=== PATIENT | male | born 1945 | race Caucasian/White ===

== ENCOUNTER 2019-08-01 08:02 | Outpatient (CLI) | payer MEDICARE, BC, SELFPAY ==
--- NOTE | 2019-08-01 08:18 | CT_ITS ---
WS: [id number] CT ANGIOGRAPHY OF THE ABDOMINAL AORTA WITH RUNOFF TO THE ANKLES HISTORY: PERIPHERAL VASCULAR DISEASE WITH CLAUDICATION TECHNIQUE: Arterial injection is performed during imaging to evaluate the aorta and runoff vessels to the ankles. MIP and volume rendering imaging has also been performed. All images are reviewed. All C T scans at [facility] use at least one of these dose optimization techniques: automated ex posure control; mA and/or kV adjustment per patient size (includes targeted exams where dose is match ed to clinical indication); or iterative reconstruction. Contrast: Omnipaque 350; 95 mL IV. DLP: 1369.14 mGy-cm. COMPARISON: Arterial Doppler 06/13/2019 Benign granuloma LEFT lower lobe. Heart size is normal. Small hiatal hernia. Variable enhancement wit hin the liver is probably related to early arterial enhancement. Small scattered cavernous hemangioma s are not completely excluded. No bile duct dilatation. Spleen is normal size. Gallbladder has been r emoved. Mild nodularity of the LEFT adrenal gland. Normal pancreas. 1.5 cm cyst lower pole LEFT kidne y. No renal obstruction. No ascites or adenopathy. RIGHT lower quadrant ileostomy. Prior cystectomy. Soft tissue thickening along the anterior LEFT abdominal wall soft tissues. No GI tract obstruction. Increase in lumbar lordosis. No osseous destruction appreciated. Abdominal aorta: Mild to moderate atherosclerosis. No occlusion or aneurysm. Celiac axis and the SMA are patent. Renal arteries and the inferior mesenteric artery are all patent. RIGHT lower extremity arterial system: Moderate calcified plaque throughout the RIGHT common and exte rnal iliac arteries. RIGHT femoral artery is occluded proximally. The deep profundas intact. Of the S FA there is complete occlusion with reconstitution noted approaching Surinder's canal. There is still c alcified plaque in the distal SFA and popliteal artery. Scattered calcified plaque throughout the run off to the ankle. Anterior tibial artery is occluded. Small caliber peroneal and posterior tibial art eries. LEFT lower extremity venous system: Moderate atherosclerotic plaque throughout the common iliac arter y. Stenosis of 40-50% involving the origin of the LEFT external iliac artery. Complete occlusion of t he proximal femoral artery. Deep profunda is intact. Superficial femoral arteries completely occluded to Surinder's canal. At Surinder's canal there is reconstitution. Scattered calcified plaque at the popl iteal artery is patent. Small vessel runoff to the ankle. Anterior tibial and posterior tibial arteri es are very small caliber. CT/CT angio abd aorta runof [id number] IMPRESSION: 1. Complete bilateral proximal superficial femoral artery occlusions at the or igins. Reconstitution near Surinder's canal. 2. Occluded proximal RIGHT anterior tibial artery. 3. Small caliber and limited runoff to the LEFT ankle via the anterior tibial and posterior tibial arteries. 4. Mild atherosclerosis aorta with no aneurysm or significant occlusion. 5. Mild stenosis origin LEFT external iliac artery. 6. Cystectomy with urinary diversion.
[2019-08-01] MEDS: iohexol 350 mg/mL 100 mL Btl IV (08:49)
== END 2019-08-01 08:03 | disposition home or self-care (01) ==
LOC: RADWPI 08:09
PROVIDERS: Family Provider Nurse Practitioner Family; PCP Nurse Practitioner Family; Referring Provider Nurse Practitioner Family; Visit Provider Thoracic Surgery (Cardiothoracic Vascular Surgery)
DX: I70.92 Chronic total occlusion of artery of the extremities (principal); I70.213 Atherosclerosis of native arteries of extremities with intermittent claudication, bilateral legs; I70.0 Atherosclerosis of aorta; I70.8 Atherosclerosis of other arteries; Z90.6 Acquired absence of other parts of urinary tract
CPT/HCPCS: 75635; Q9967

== ENCOUNTER 2019-08-29 13:02 | Observation (INO) | payer MEDICARE, BC, SELFPAY ==
[2019-08-29] VITALS (34 sets, daily range): BP systolic 104–180; BP diastolic 68–98; PULSE 51–67; RESP 1–23; TEMP 36.4–37; O2SAT 80–100; BMI 26.4
--- NOTE | 2019-08-29 09:00 | XACV_ITS ---
Wt: 83 kg BSA: 2.04 m2 Any Known Allergies: Penicillins Gender: Male : 1945 Exam Type: Invasive Peripheral Vascular Procedure(s): Procedure Description: Peripheral Cath Diagnostic Procedure Procedure Description: Abdominal aortic angiography Procedure Description: Lower extremities' angiography Procedure Description: Peripheral vascular Intervention Procedure Description: PV Balloon Procedure Description: PV Atherectomy Exam Priority: Routine Lower Extremity Interventional Findings Right common femoral artery was used to approach left ostial SFA which was chronically occluded. After somewhat difficulty we were able to cross the lesion with the help of Glidewire , viper wire was exchanged , CSI atherectomy of ostial to distal left SFA using 2.0 bur followed by balloon angioplasty with [id number] and lutonix drug-eluting balloons, Good angiographic result with excellent flow was achieved in the left SFA, popliteal, tibioperoneal trunk and below the knee two -vessel runoff including anterior posterior tibial was achieved. Please see the inventory for details left balloons wires and other instruments. Conclusions Peripheral Procedure Description: severe lifestyle limiting claudication of both legs more on the left leg .Negro grade II, category 4:Dami stage III. Procedure#1 Abdominal aorta : Luminal irregularities with moderate aneurysm#2 Left and right renal artery has luminal irregularities#3 Left common iliac artery has luminal irregularity #4 Right common iliac artery has luminal irregularity #5 Left internal iliac and right internal iliac has luminal irregularities#7 Right and left external iliac artery has luminal irregularity#8 Left and right common femoral artery has luminal irregularity#9 Left and right profunda femoral artery has luminal irregularity#10 Right and left SFA are chronically occluded at the ostium. No flow noted below the knee however it appeared to me that it tried to constitute on the left side at the level of mid popliteal artery. No tibial peroneal trunk anterior posterior and peroneal arteries on both sides were visualized. Recommendations 1-Return to inpatient for close monitoring and routine cath care2-Risk factor modification for secondary prevention3-Statin and aspirin 81 mg life-long, if tolerated4-Continue Plavix 75mg p.o. daily for three months. Patient will be brought back for right SFA intervention for life style limiting claudication in tthree weeks5-Continue optimal medical management6-Follow up with Dr. Augustin in four weeks and your primary care in 10 days. Hemodynamic Data Phase:Rest AO : 134.0 mmHg / 53.0 mmHg ( 82.0 mmHg ) @ 5:29:00 AM 103.0 mmHg / 43.0 mmHg ( 65.0 mmHg ) @ 5:52:00 AM Access Site Site: Right Femoral artery Sheath Size: 6 Fr Hemost... Method: Suture Hemost... Success: Successful Procedure Details Findings Procedure Consent Obtained. Pre-Procedure Time Out. Identified patient by full name and date of as verbalized by the patient/guarantor. Does the consent match the physician's order: Yes. Accurate & Complete Informed Consent: Yes. Inpatient/Outpatient History & Physical on Chart: Yes. If H&P is completed, is and addenduem needed: No; If yes, is the addendum complete: N/A. Visualize and Verify Site with Patient/Guarantor: N/A. Relevant Radiology Images available: N/A. Pre-op teaching completed and patient verbalized understanding. The risks, benefits, and alternatives of sedation and/or procedure were discussed by physician. The patient agrees to continue. Procedure started. Correct patient, site and procedure confirmed by cath team. PERRLA. Strong, equal hand care center manager bilaterally. Lungs clear x 5 lobes. IV Site on Arrival: 20 gauge in the left anticubital. IV Fluids: 0.9% NaCl at KVO. 0 mL infused prior to cook house laborer. Physician notified. Pre Procedural Pulses: bilateral dorsalis pedis was Doppled. Pre Procedural Pulses: bilateral posterior tibial was Doppled. Oxygen started at 2liters/min via nasal canula. bilateral groins was prepped with chloroprep then draped in the usual sterile fashion. Pt arrived with dominguez catheter via urostomy in place. Baseline sample Acquired. HR: 43 BPM. Equipment: Peripheral. Physician arrived. Cardiac Cath Pack. ACIST Manifold Kit Model BT 2000. Heparinized Saline (2 units/mL), 1000 mL bag. Physician scrubbed in. Immediate Pre-Procedure Time Out. Correct Patient: Yes; Correct Procedure: Yes; Correct Site: Yes; Correct Patient Position: Yes; Correct Supplies: Yes; Dried Flammable Prep: Yes; Blood Products Available: N/A;. Lidocaine 1% infiltrated to the right groin. Arterial access obtained with micropuncture set. 5 Fr Contra catheter inserted over wire. Abdominal aortogram performed in AP @ 10 mL/sec for a total of 30 mL. Glidewire inserted. Catheter removed over the glide wire. Short 6 fr sheath exchanged for long 45 cm 6 fr flexor sheath. Inventory is CK 6 FR FLEXOR SHEATH 45CM. Side port of sheath attached to Normal Saline flush at KVO to maintain patency. Left leg runoff through sheath 10 ml for total of 30 ml. SEEKER support catheter inserted over glidewire. Wire out. Hand injection. Glidewire out. VIPER wire inserted. SEEKER catheter out over VIPER wire. Family updated. 2.00 mm Diamondback 360 Peripheral Atherectomy device inserted over VIPER wire. Orbital Atherectomy performed to Left SFA with 2.00mm device. Atherectomy device removed over VIPER wire. Results checked. SEEKER catheter inserted over VIPER wire. VIPER wire out. SEEKER catheter out. Inflation number : 1 A AB Surrency 35 FURNITURE ASSEMBLER Catheter [id number] was prepped and advanced across the Superficial Femoral, Left , then inflated to 6 GEOVANNI for 1:04 seconds. Inflation number: 2 The AB Surrency 35 FURNITURE ASSEMBLER Catheter [id number] was reinflated across the Superficial Femoral, Left, to 6 GEOVANNI for 1:03 seconds. Inflation number: 3 The AB Surrency 35 FURNITURE ASSEMBLER Catheter [id number] was reinflated across the Superficial Femoral, Left, to 6 GEOVANNI for 1:03 seconds. Inflation number: 4 The AB Surrency 35 FURNITURE ASSEMBLER Catheter [id number] was reinflated across the Superficial Femoral, Left, to 6 GEOVANNI for 1:04 seconds. Balloon out over wire. Inflation number: 5 The AB Surrency 35 FURNITURE ASSEMBLER Catheter [id number] was reinflated across the Superficial Femoral, Left, to 8 GEOVANNI for 2:04 seconds. Inflation number: 6 The AB Surrency 35 FURNITURE ASSEMBLER Catheter [id number] was reinflated across the Superficial Femoral, Left, to 8 GEOVANNI for 1:05 seconds. Inflation number: 7 The AB Surrency 35 FURNITURE ASSEMBLER Catheter [id number] was reinflated across the Superficial Femoral, Left, to 8 GEOVANNI for 1:03 seconds. Inflation number : 8 A BARD 6FR Lutinox [id number] drug coated balloon was prepped and advanced across the Superficial Femoral, Left , then inflated to 8 GEOVANNI for 1:03 seconds. Inflation number: 9 The BARD 6FR Lutinox [id number] drug coated balloon was reinflated across the Superficial Femoral, Left, to 8 GEOVANNI for 1:03 seconds. Inflation number: 11 The BARD 6FR Lutinox [id number] drug coated balloon was reinflated across the Superficial Femoral, Left, to 8 GEOVANNI for 1:01 seconds. Balloon out. Long 45 cm 6 fr flexor exchanged for short 6 fr sheath. Right leg runoff 10 ml for total of 30 ml through sheath. Physician scrubbed out. A Suture was successful obtaining hemostatsis at the Right Femoral artery insertion site. Sheath(s) sutured into position with 2-0 silk and sterile 4x4's and Op-site applied over the site. No oozing or signs and symptoms of hematoma noted. Arterial sheath flushed and connected to tranducer and pressure bag with heparinized saline. Post Procedure: Pulses reassessed and unchanged. PERRLA. Strong, equal hand care center manager bilaterally. No VTE prophylaxis required. Medication's Wasted: Nitro = 49.2 mg. Medication's Wasted: Heparin = 1000 units. Total IV fluids: 200 mL. Contrast type used: Visipaque 320 mgI/mL, 500 mL bottle. Complications: none. Medication's Wasted: Other = fentanyl 50 mcg. Post-op diagnosis: severe PAD with lifestyle limiting claudication. Estimated blood loss: 5mL-10mL. Procedure completed. Patient transferred by bed to 1st floor. Vital chart was stopped. Procedure Medications Start: 11:20 AM Stop: 11:20 AM Medication: Versed Amount: 1 mg Route: I.V. Start: 11:21 AM Stop: 11:21 AM Medication: Fentanyl Amount: 50 mcg Route: I.V. Start: 11:39 AM Stop: 11:39 AM Medication: Versed Amount: 1 mg Route: I.V. Start: 11:39 AM Stop: 11:39 AM Medication: Fentanyl Amount: 50 mcg Route: I.V. Start: 11:55 AM Stop: 11:55 AM Medication: Heparin Amount: 5000 units Route: I.V. Start: 12:20 PM Stop: 12:20 PM Medication: Nitrogylcerin Amount: 400 mcg Route: I.A. Start: 12:41 PM Stop: 12:41 PM Medication: Nitrogylcerin Amount: 400 mcg Route: I.A. Start: 12:52 PM Stop: 12:52 PM Medication: Fentanyl Amount: 50 mcg Route: I.V. I, the attending physician, have reviewed and verified all procedure medications. Yes, all medications given per verbal order History/Risk Factors Hypertension: Yes Dyslipidemia: Yes Diabetic Therapy: Insulin Peripheral Arterial Disease (PAD): Yes Myocardial Infarction (AR): No Obesity: No Renal Disease: No Tobacco Use: Current/Recent(w/in 1 year) Prior Interventions PCI: No CABG: No Valve Surgery: No Report Signatures Finalized by:Parisa Augustin MD on 09/11/2019 6:37:42 PM
[2019-08-29] MEDS: diphenhydrAMINE 50 mg Capsule PO (10:22)
[2019-08-29 10:37] LABS: Basophils # 0.1 10^3/uL (0.0-0.1); Basophils % 0.7 %; Eosinophils # 0.1 10^3/uL (0.0-0.8); Eosinophils % 1.2 %; Hemoglobin 15.9 g/dL (11.7-16.6); Lymphocytes # 2.6 10^3/uL (0.8-4.8); Lymphocytes % 28.5 %; Mean Corpuscular HGB Conc 33.8 g/dL (30.0-36.0); Mean Corpuscular Hemoglobin 31.1 pg (28.0-34.0); Mean Corpuscular Volume 91.8 fL (80-94); Monocytes # 0.8 10^3/uL (0.2-0.9); Monocytes % 9.2 %; Neutrophils # 5.5 10^3/uL (1.8-7.7); Neutrophils % 60.1 %; Nucleated Red Blood Cells % 0 %; Platelet Count 232 10^3/cmm (130-400); Red Blood Count 5.12 10^6/uL (4.1-5.3); Red Cell Distribution Width 13.5 % (12.1-15.1); White Blood Count 9.1 10^3/uL (4.0-10.0)
[2019-08-29 10:54] LABS: Anion Gap 15.5 (5-19); Blood Urea Nitrogen 16 mg/dL (8-23); Calcium 9.6 mg/dL (8.5-10.5); Carbon Dioxide 23 mmol/L (22-29); Chloride 106 mmol/L (98-107); Glucose 111 mg/dL (65-115); Osmolality Calculated 287 mOsm/kg (285-295); Potassium 4.5 mmol/L (3.5-5.1); Sodium 140 mmol/L (136-145)
[2019-08-29] MEDS: clopidogrel 300 mg Tablet PO (14:41)
[2019-08-29] MEDS: amlodipine 5 mg Tablet PO (15:28)
[2019-08-29] MEDS: atorvastatin 40 mg Tablet 20 MG PO (15:29)
[2019-08-29 16:44] LABS: Glucose Point of Care 162 mg/dL (70-110)
[2019-08-29 16:57] LABS: Partial Thromboplastin Time 33.6 SECONDS (23.9-36.7)
[2019-08-29] MEDS: HYDROcodone-acetaminophen 5-325 mg Tablet 1 TAB PO (17:12)
[2019-08-29] MEDS: gabapentin 100 mg Capsule 200 MG PO (17:12)
[2019-08-29] MEDS: fentaNYL 50 mcg/mL INJ 2mL IVP (17:14)
--- NOTE | 2019-08-29 17:35 | PC.NURSE ---
Sheath removed Explained procedure to pt. Fentanyl IVP given pre-sheath pull. Atropine at bedside as needed. Right groin femoral artery felt and palpated. Sheath removed and applied manual pressure for 20 mins. No hematoma, bleeding or swelling noted. Neurovascualr checks monitored. Slightly faint but able to palpate right dorsalis pedis. Skin is mildly cooler on right foot. pt denies any pain to right lower extremity. Instructed pt on activity bed rest for 6 hrs. HOB not more than 30 degrees elevation. to call nurse if any wetness, unusual pain or pressure felt. Pt verbalizes understanding. Call light within reach. Vital signs monitored.
--- NOTE | 2019-08-29 17:51 | PC.CHAP ---
Pastoral Care Encounter/Spiritual Assessment Type of Contact [] Declined deckhand fishing vessel visit [] Patient/Family/Request visit [] Outpatient visit [] Follow-up visit [] Physician referral [] Code/Alert [x] Routine visit [] Staff referral [] Actively dying [] Patient sleeping [] Family support [] [] Out of room [] Palliative care [] [] Receiving care in room [] Pre-surgical visit [] Trauma [] Long length of stay [] ICU visit [] Other: Relational/Emotional Strength [x] Patient feels connected with others/family/visitors/staff [] Distress [] Loneliness/isolation [] Abandonment Spirituality of Patient [] Person of Jenna [] Attends Anglican of their Jenna [x] Believes in Prayer [] Reads Bible or Yazdanism materials [] There are Spiritual issues to be addressed Audioprosthologist Interventions [x] Prayer [x] Active listening [x] Non-anxious presence [x] Spiritual/emotional support [] Crisis/trauma care [] Spiritual counseling [] Bereavement support [] Provided bereavement packet [] Provided Bible/devotional materials [] Provided toy/stuffed animal, coloring book to patient or family member [] Provided Communion [] Anointing/[place] [] Salvation [x] Completed spiritual assessment [] Other: Impact on Illness or Injury [] Angry [] Fearful [] Anxious [] Often cries [] Exhaustion [] Unable to work [] Unable to attend lutheran [] Unable to walk/stand [] Unable to read [] Unable to drive [] Unable to eat/drink [] Unable to sleep [] Unable to be with family [] Patient intubated [] Other: Summary Audioprosthologist prayed with patient and visited with him for a few minutes. Time spent with patient 10 minutes
--- NOTE | 2019-08-29 20:31 | PC.NURSE ---
Assumed care of patient at 1900 after receiving bedside report from ALEXANDREA Graves. Patient is s/p peripheral angiogram with right groin access. Sheath was removed and dressing is in place. Dressing is c,d,i.
[2019-08-29 20:43] LABS: Glucose Point of Care 175 mg/dL (70-110)
[2019-08-29] MEDS: insulin glargine 100 units/1 mL 30 UNIT SUBCUT (21:21)
[2019-08-29] MEDS: sodium chloride 0.9% 1,000 ML 100 ML IV (21:21)
[2019-08-30 03:57] VITALS: BP 131/67; PULSE 58; RESP 16; TEMP 36.8; O2SAT 91
[2019-08-30 05:11] LABS: Basophils # 0.1 10^3/uL (0.0-0.1); Basophils % 0.7 %; Eosinophils # 0.3 10^3/uL (0.0-0.8); Eosinophils % 2.6 %; Hematocrit 45.9 % (42.0-52.0); Hemoglobin 14.8 g/dL (11.7-16.6); Lymphocytes # 2.3 10^3/uL (0.8-4.8); Lymphocytes % 20.4 %; Mean Corpuscular HGB Conc 32.2 g/dL (30.0-36.0); Mean Corpuscular Hemoglobin 31.8 pg (28.0-34.0); Mean Corpuscular Volume 98.7 fL (80-94); Mean Platelet Volume 10.3 fL (7.4-10.4); Monocytes # 1.2 10^3/uL (0.2-0.9); Monocytes % 10.4 %; Neutrophils # 7.4 10^3/uL (1.8-7.7); Neutrophils % 65.6 %; Nucleated Red Blood Cells % 0 %; Platelet Count 206 10^3/cmm (130-400); Red Blood Count 4.65 10^6/uL (4.1-5.3); Red Cell Distribution Width 13.8 % (12.1-15.1); White Blood Count 11.2 10^3/uL (4.0-10.0)
[2019-08-30] MEDS: insulin glargine 100 units/1 mL 40 UNIT SUBCUT (05:11)
[2019-08-30 05:40] LABS: Anion Gap 15.9 (5-19); Blood Urea Nitrogen 17 mg/dL (8-23); Calcium 8.9 mg/dL (8.5-10.5); Carbon Dioxide 21 mmol/L (22-29); Chloride 105 mmol/L (98-107); Glucose 182 mg/dL (65-115); Osmolality Calculated 285 mOsm/kg (285-295); Potassium 4.9 mmol/L (3.5-5.1); Sodium 137 mmol/L (136-145)
[2019-08-30 06:12] LABS: Glucose Point of Care 157 mg/dL (70-110)
[2019-08-30 07:29] VITALS: BP 143/74; PULSE 67; RESP 13; TEMP 36.8; O2SAT 96
[2019-08-30] MEDS: aspirin 81 mg EC Tablet PO (08:17)
[2019-08-30] MEDS: gabapentin 100 mg Capsule 200 MG PO (08:17)
[2019-08-30] MEDS: atorvastatin 40 mg Tablet 20 MG PO (08:18)
[2019-08-30] MEDS: amlodipine 5 mg Tablet PO (08:18)
[2019-08-30 11:04] VITALS: BP 143/74; PULSE 67; RESP 13; TEMP 36.8; O2SAT 96
[2019-08-30 11:32] LABS: Glucose Point of Care 190 mg/dL (70-110)
--- NOTE | 2019-09-20 14:48 | P.SS_ITS ---
Short Stay Summary Providers Attending Provider: Parisa Augustin MD Primary Care Provider: JOSE Paez Chief Complaint: lifestyle limmiting clauditation HPI History of Present Illness Bandar Vee is a 74 year old male Past medical history significant of diabetes mellitus history of tobacco abuse who underwent Peripheral angiogram for lifestyle limiting Claudication found to have totally occluded bilateral SFA. Right common femoral artery approach was adopted. After somewhat difficulty we were able to cross ostial SFA lesion. CSI orbital atherectomy with 2.0 by was performed followed by multiple balloon angioplasty with non-drug coated and lutonix drug-coated balloon with excellent angiographic result. Excellent angiographic result was achieved in the left SFA, popliteal, tibioperoneal trunk with 2 good Multivessel runoff noted in the lower leg and in the foot. No overnight event was observed Postoperatively. Patient has good left leg dorsalis pedis and posterior tibial pulse. Right groin looks better. Patient is being discharged home with advice to bring him back in 2-3 weeks for right leg intervention for right complete SFA occlusion. Review of Systems Skin/Breast: Reports: surgical incision Home Meds/Allergies Home Medications and Allergies Home Medications Medication Instructions Recorded Confirmed Type amlodipine 5 mg-atorvastatin 20 mg 1 tab PO DAILY 07/18/19 09/06/19 History tablet gabapentin 100 mg capsule 200 mg PO BID 07/18/19 09/06/19 History pravastatin 40 mg tablet 40 mg PO DAILY 07/18/19 09/06/19 History aspirin 81 mg tablet,delayed 81 mg PO DAILY 07/21/19 09/06/19 History release insulin aspart U-100 [Novolog 0 unit SUBCUT AC 08/26/19 09/06/19 History U-100 Insulin aspart] insulin glargine 30 unit SUBCUT BEDTIME 08/26/19 09/06/19 History insulin glargine 40 unit SUBCUT QAM 08/26/19 09/06/19 History Allergies Allergy/AdvReac Type Severity Reaction Status Date / Time Penicillins Allergy Unknown unknown Verified 07/18/19 14:41 PFSH Acute PFSH: Medical History Bladder CA in situ Fracture of right tibia and fibula Hyperlipidemia Hypertension Surgical History H/O eye surgery H/O right cataract extraction H/O thumb surgery Family History Father CAD (coronary artery disease) Diabetes Family history of premature coronary artery disease Mother Cancer Denies family history of Clotting disorder Dementia Psychiatric illness Chronic kidney disease (CKD) Suicide Anesthesia complication Bleeding disorder Lung disease Hypertension Stroke Social History Smoking and tobacco status: current every day smoker cigars Cigars smoked per week: 5 Alcohol intake: never Dietary Habits: Current diet type/program: regular Caffeine: Yes Exercise: What type of physical activity do you participate in?: none Safety: Seatbelt use: always Home Safety: Working smoke detector in home: Yes Fire extinguisher in home: No Carbon monoxide detector in home: No Firearms in home: No Personal Safety: Do you feel safe at home: No Vitals/I&O/Wt Last Vital Signs Temp 98.2 F 08/30/19 11:04 Pulse 67 08/30/19 11:04 Resp 13 08/30/19 11:04 BP 143/74 08/30/19 11:04 Pulse Ox 96 08/30/19 11:04 Physical Exam Narrative: EXAM NARRATIVE: GENERAL: Patient is alert, awake and oriented x3. NECK: No jugular vein distension. HEENT: No cyanosis. No icterus. No pallor. HEART: Regular S1 and S2. No murmur, rub or gallop. LUNGS: Clear to auscultate bilaterally. ABDOMEN: Soft, nontender and nondistended. Positive bowel sounds. No guarding, rebound or tenderness. CENTRAL NERVOUS SYSTEM: Grossly nonfocal. EXTREMITIES: Lower extremities without edema Left dorsalis pedis and posterior tibial positive. No dorsalis pedis and posterior tibial in the right leg SSS Data Data Completed and Pending: Completed Studies During Hospitalization Category Date Time Status SOCCER BALL ASSEMBLER request for service Routin e Exams 08/29/19 09:00 Completed Discharge Plan Discharge Patient Disposition: Home, Self-Care Prescriptions: New clopidogrel 75 mg tablet 75 mg PO DAILY Qty: 90 RF: 0 Continued aspirin [Adult Aspirin Regimen] 81 mg tablet,delayed release (DR/EC) 81 mg PO DAILY RF: 0 amlodipine-atorvastatin 5-20 mg tablet 1 tab PO DAILY RF: 0 pravastatin 40 mg tablet 40 mg PO DAILY RF: 0 gabapentin 100 mg capsule 200 mg PO BID RF: 0 insulin glargine 100 unit/mL Solution 30 unit SUBCUT BEDTIME RF: 0 insulin glargine 100 unit/mL Solution 40 unit SUBCUT QAM RF: 0 insulin aspart U-100 [Novolog U-100 Insulin aspart] 100 unit/mL Solution 0 unit SUBCUT AC RF: 0 Discharge Orders: Discharge Order (Routine); Ordered 08/30/19 Ordered By: Parisa Augustin Referrals: Parisa Augustin MD [Physician] - 2 months (You have a cardiology followup with Dr. Augustin at [facility] [place] [facility] on November 15 at 3:45pm. Any questions or appointment changes, please call them at [phone]) Halley Choudhury FNP [Nurse Practitioner] - 4-7 days (You have an appointment scheduled with JOSE Cleaning at [facility] for surgery site check on September 06 at 2:00pm. Any questions or appointment changes, please call them at [phone]) Patient Instructions: Clopidogrel (By mouth), Peripheral Vascular Disorders (DC) Discharge Date/Time: 08/30/19 11:35 Attestations Medical Necessity Statement*: Patient can be discharged home Time Spent in Patient Care*: less than 30 min Quality Metrics Clinical Quality Measures: During this hospital stay, did patient experience: None Coding Level of Care Code New Pt Acute Project Management Engineer for Chg Fwd Patient Type New History Expanded Problem Focused Exam Expanded Problem Focused Medical Decision Making Moderate Complexity
== END 2019-08-30 11:35 | disposition home or self-care (01) ==
LOC: CSU 14:20
PROVIDERS: Admitting Provider Internal Medicine Cardiovascular Disease; Family Provider Nurse Practitioner Family; PCP Nurse Practitioner Family; Visit Provider Internal Medicine Cardiovascular Disease
DX: I70.213 Atherosclerosis of native arteries of extremities with intermittent claudication, bilateral legs (principal); Z79.82 Long term (current) use of aspirin; E78.5 Hyperlipidemia, unspecified; I10 Essential (primary) hypertension
CPT/HCPCS: 12345; 36415; 36416; 37224; 37225; 75625; 75716; 80048; 82962; 85025; 85730; 96372; C1724; C1725; C1769; C1887; C1894; C2623; G0378; J1644; J1815; J2001; J2250; J3010; J3490; J7030; Q0163; Q9967

== ENCOUNTER → 2019-09-06 14:50 | Outpatient (BNVA) | payer MEDICARE, BC, SELFPAY | PROVIDERS: Family Provider Nurse Practitioner Family; PCP Nurse Practitioner Family; Visit Provider Nurse Practitioner Family | DX: I73.9 Peripheral vascular disease, unspecified (principal) | CPT/HCPCS: 80048 ==

== ENCOUNTER → 2019-10-06 10:36 | Outpatient (BNVA) | payer MEDICARE, BC, SELFPAY | PROVIDERS: Family Provider Nurse Practitioner Family; PCP Nurse Practitioner Family; Visit Provider Nurse Practitioner Family | DX: E78.2 Mixed hyperlipidemia (principal); Z51.81 Encounter for therapeutic drug level monitoring; I10 Essential (primary) hypertension; E78.5 Hyperlipidemia, unspecified; I73.9 Peripheral vascular disease, unspecified; E10.51 Type 1 diabetes mellitus with diabetic peripheral angiopathy without gangrene | CPT/HCPCS: 80053; 80061; 83036; 85025 ==

== ENCOUNTER → 2020-04-16 11:48 | Outpatient (BNVA) | payer MEDICARE, BC, SELFPAY | PROVIDERS: Family Provider Nurse Practitioner Family; PCP Nurse Practitioner Family; Visit Provider Nurse Practitioner Family | DX: E11.9 Type 2 diabetes mellitus without complications (principal); Z79.899 Other long term (current) drug therapy; E78.5 Hyperlipidemia, unspecified; I10 Essential (primary) hypertension | CPT/HCPCS: 80048; 83036 ==

== ENCOUNTER 2020-05-09 09:44 | Outpatient (CLI) | payer MEDICARE, BC, SELFPAY ==
[2020-05-09 10:04] VITALS: BMI 25.4
--- NOTE | 2020-05-09 10:12 | ECG_ITS ---
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 Interpretive Statements NAME OF STUDY: EXERCISE SESTAMIBI STRESS TEST INDICATION: Chest Pain; Shortness of BreathResults to DR AUGUSTIN PROCEDURE: The baseline electrocardiogram showed normal sinus rhythm with normal ST-Ts. At the baseline, the patient's blood pressure was 157/74 mm Hg with a heart rate of 37. The patient exercised for 7 minutes and 46 seconds on a standard Senthil protocol. Patient attained a maximum heart rate of 132 beats per minute(89% of the maximum predicted heart rate) with a blood pressure at the peak exercise of 219/85 the inferolateral leads. Patient did not have any chest pain or any significant arrhythmis with the exercise Sestamibi was injected 1 minute prior to the peak exercise During the recovery phase, there were no new changes. Patient had few PVCs, couplets and an episode of nonsustained medical tachycardia during the recovery phase Blood pressure at the end of the recovery phase was 157/70 mm Hg with a heartNormal 1. Nonspecific EKG changes with the [treadmill exercise 2. No exercise-induced chest pain or cardiac arrhythmia. Hypertensive response to exercise 3. Fair exercise tolerance, attained a maximum of 10.2 METs 4. Sestamibi/Sestamibi perfusion results pending; see separate report. Electronically Signed On 05-10-2020 8:44:22 CDT by Dmitriy Lala M.D. [id number]
--- NOTE | 2020-05-09 10:13 | NMCV_ITS ---
NM keiar perf SPECT r/s* [id number] Bandar Vee Age: 75 Gender: M : 1945 Exam Date: 05/09/2020 10:50 Ordering Phys: Parisa Augustin MD ([email or web address]) Technologist: JOSÉ MIGUEL Hernandez Exam Location: [facility] Indications: CHEST PAIN STRESS TEST Please [facility] IMAGE PROTOCOL Rest/Stress 1 Exercise Day Radiopharmaceutical Dose (mCi) Administration Site Administered by Rest: Tc-99m 10.7 IV JOSÉ MIGUEL Perez Sestamibi Stress:Tc-99m 32.9 IV JOSÉ MIGUEL Perez Sestamibi Rest: 09-May-2020 60 Discovery 630 Stress: 09-May-2020 30 Discovery 630 Radiopharmaceutical was injected at 85 % maximum heart rate. Images obtained in supine and prone position. SPECT RESULTS Technical Quality: Excellent Raw Data Analysis: Normal Image Corrections: No attenuation or motion correction applied to stress images. Summed Stress Score: 11 Summed Rest Score: 10 Summed Difference Score: 1 PERFUSION FINDINGS Moderate area of severely decreases uptake was noted in the basal and mid inferior, inferolateral knee and apical lateral regions. Small area of decreased tracer uptake was noted in the mid anteroseptal region as well. Subtle areas of reversibility was noted in the inferior and inferolateral regions. FUNCTIONAL RESULTS (calculated via Gated SPECT) Stress Image LV EF (%): 57 Stress EDV (mL):92 TID: 0.94 Stress ESV (mL):40 FUNCTIONAL FINDINGS: Segmental wall motion analysis revealing no gross wall motion normalities. IMPRESSIONS 1. Myocardial perfusion imaging revealing moderate area of severely decreases uptake in the inferior, inferolateral and apical lateral regions, with a subtle areas of reversibility in the inferior and inferolateral regions, suggestive of myocardial scarring in the distribution of the right coronary artery and circumflex artery with very small areas of bright-infarction ischemia. 2. Normal elution fraction 57%. 3. LV wall motion analysis revealing no gross wall motion abnormalities. 4. Normal LV volume.( the end-systolic volume was [address] mL). Dr Dmitriy Lala MD FACC (Electronically Signed) Final Date: 09 May 2020 21:05 S
--- NOTE | 2020-05-09 12:15 | SUR.PREOP ---
Patient reports no pain or discomfort prior to the start of the procedure.
[2020-05-09 12:44] VITALS: BP 154/80; PULSE 83
== END 2020-05-09 09:45 | disposition home or self-care (01) ==
PROVIDERS: PCP Nurse Practitioner Family; Visit Provider Internal Medicine Cardiovascular Disease
DX: R07.9 Chest pain, unspecified (principal); R06.02 Shortness of breath
CPT/HCPCS: 78452; 93017; A9500

== ENCOUNTER 2020-07-05 15:02 | Outpatient (CLI) | payer MEDICARE, BC, SELFPAY | END 2020-07-05 15:03 | disposition home or self-care (01) | LOC: WOUND 15:05 | PROVIDERS: PCP Nurse Practitioner Family; Visit Provider Thoracic Surgery (Cardiothoracic Vascular Surgery) | DX: E11.621 Type 2 diabetes mellitus with foot ulcer (principal); L97.422 Non-pressure chronic ulcer of left heel and midfoot with fat layer exposed; L97.523 Non-pressure chronic ulcer of other part of left foot with necrosis of muscle; Z89.422 Acquired absence of other left toe(s) | CPT/HCPCS: 11042 ==

== ENCOUNTER → 2020-08-22 09:28 | Outpatient (BNVA) | payer MEDICARE, BC, SELFPAY | PROVIDERS: PCP Nurse Practitioner Family; Visit Provider Nurse Practitioner Family | DX: E11.9 Type 2 diabetes mellitus without complications (principal); R25.2 Cramp and spasm; Z51.81 Encounter for therapeutic drug level monitoring; Z79.899 Other long term (current) drug therapy; I10 Essential (primary) hypertension; E78.5 Hyperlipidemia, unspecified; Z79.01 Long term (current) use of anticoagulants | CPT/HCPCS: 80053; 82043; 82550; 83036; 83735; 85025 ==

== ENCOUNTER → 2020-11-07 08:57 | Outpatient (BNVA) | payer MEDICARE, BC, SELFPAY | PROVIDERS: PCP Nurse Practitioner Family; Visit Provider Internal Medicine Cardiovascular Disease | DX: I73.9 Peripheral vascular disease, unspecified (principal); Z01.812 Encounter for preprocedural laboratory examination; Z11.52 Encounter for screening for COVID-19 | CPT/HCPCS: 80048; 85025; 85610; 87635 ==

== ENCOUNTER 2020-11-12 09:28 | Observation (INO) | payer MEDICARE, BC, SELFPAY ==
[2020-11-09 09:00] VITALS: BMI 26.5
[2020-11-12] VITALS (35 sets, daily range): BP systolic 112–183; BP diastolic 63–88; PULSE 48–76; RESP 12–25; TEMP 36.3; O2SAT 96–98; BMI 26.8
--- NOTE | 2020-11-12 07:30 | XACV_ITS ---
Ht: 178 cm Wt: 85 kg BSA: 2.06 m2 Any Known Allergies: Penicillins Gender: Male : 1945 Exam Type: Invasive Peripheral Vascular Procedure(s): Procedure Description: Peripheral Cath Diagnostic Procedure Procedure Description: Lower extremities' angiography Exam Priority: Routine Lower Extremity Interventional Findings Through left common femoral approach using Glidewire with the help of seeker was used to cross the proximal right SFA. We were able to cross the proximal SFA into the distal segment however due to very highly calcified nature of the lesion we were not able to cross in to popliteal vessel. Procedure remained unsuccessful as at this point we will bring him back for popliteal approach in few days. Conclusions Indication for peripheral angiogram: Lifestyle limiting claudicationSelective engagement of right common iliac artery was performed through left common femoral approach.Right common iliac artery has luminal irregularity, right external iliac, common femoral and profundofemoral has luminal irregularity.Right SFA is chronically occluded at the ostium all the way to the distal segment popliteal artery reconstitutes through profunda at the distal segment of the chronically occluded right SFA. Right tibioperoneal trunk has luminal irregularity right anterior tibial artery is chronically occluded two-vessel runoff was noted below the knee. Recommendations Usual post-cath care, stage percutaneous intervention through popliteal approach in couple of weeks. Hemodynamic Data Phase:Rest AO : 125.0 / 56.0 ( 80.0 ) @ 8:37:00 AM Access Site Site: Left Femoral artery Sheath Size: 6 Fr Hemost... Method: Suture Hemost... Success: Successful Procedure Details Findings Procedure Consent Obtained. Pre-Procedure Time Out. Identified patient by full name and date of as verbalized by the patient/guarantor. Does the consent match the physician's order: Yes. Accurate & Complete Informed Consent: Yes. Inpatient/Outpatient History & Physical on Chart: Yes. If H&P is completed, is and addenduem needed: No; If yes, is the addendum complete: N/A. Visualize and Verify Site with Patient/Guarantor: N/A. Relevant Radiology Images available: N/A. Pre-op teaching completed and patient verbalized understanding. The risks, benefits, and alternatives of sedation and/or procedure were discussed by physician. The patient agrees to continue. Procedure started. Correct patient, site and procedure confirmed by cath team. PERRLA. Strong, equal hand manager payroll bilaterally. Lungs clear x 5 lobes. IV Site on Arrival: 20 gauge in the left anticubital. IV Fluids: 0.9% NaCl at KVO. 0 mL infused prior to laborer prestressed concrete. Pre Procedural Pulses: bilateral dorsalis pedis was Doppled. Pre Procedural Pulses: bilateral posterior tibial was 1+. Pre Procedural Pulses: bilateral radial was 2+. Oxygen started at 2liters/min via nasal canula. bilateral groins was prepped with chloroprep then draped in the usual sterile fashion. Baseline sample Acquired. HR: 63 BPM. Physician notified. Physician arrived. Equipment: 6F - Femoral. Cardiac Cath Pack. ACIST Manifold Kit Model BT 2000. Heparinized Saline (2 units/mL), 1000 mL bag. Kit, Micropuncture. Physician scrubbed in. Immediate Pre-Procedure Time Out. Correct Patient: Yes; Correct Procedure: Yes; Correct Site: Yes; Correct Patient Position: Yes; Correct Supplies: Yes; Dried Flammable Prep: Yes; Blood Products Available: N/A;. Lidocaine 1% infiltrated to the left groin. Arterial access obtained with micropuncture set. Equipment: Peripheral. Inventory is JJ 6F 11cm Yun Plus Sheath. A JJ 5F RIM 65 cm Diagnostic Catheter was advanced over the glidewire and used for Lower extremity arteriography. Hand injection performed. Glidewire advanced into to right SFA. Catheter removed over the glide wire. Short 6 fr sheath exchanged for long 45 cm 6 fr Flexor sheath. Inventory is CK 6 FR FLEXOR SHEATH 45CM. Right leg runoff 10 ml for total of 30 ml. CAPONE 3 ml for total of 6 ml. Side port of sheath attached to Normal Saline flush at KVO to maintain patency. SEEKER support catheter inserted over glidewire. Inventory is SEEKER support catheter. Glidewire out. Hand injection performed. Glidewire inserted. Glidewire out. Hand injection performed. Glidewire inserted. Seeker advanced to distal SFA. Glidewire out. Hand injection performed. SEEKER catheter removed over glidewire. Long 45 cm 6 fr Flexor sheath exchanged for short 6 fr sheath. Physician scrubbed out. A Suture was successful obtaining hemostatsis at the Left Femoral artery insertion site. Sheath(s) sutured into position with 2-0 silk and sterile 4x4's and Op-site applied over the site. No oozing or signs and symptoms of hematoma noted. Arterial sheath flushed and connected to tranducer and pressure bag with heparinized saline. Post Procedure: Pulses reassessed and unchanged. PERRLA. Strong, equal hand manager payroll bilaterally. No VTE prophylaxis required. Medication's Wasted: Heparin = 9000 units. Total IV fluids: 66 mL. Contrast type used: Visipaque 320 mgI/mL, 500 mL bottle. Complications: none. Estimated blood loss: 5mL-10mL. Post-op diagnosis: severe PVD. Procedure completed. Patient transferred by bed to 1st floor. Vital chart was stopped. Procedure Medications Start: 9:22 AM Stop: 9:22 AM Medication: Versed Amount: 1 mg Route: I.V. Start: 9:22 AM Stop: 9:22 AM Medication: Fentanyl Amount: 50 mcg Route: I.V. Start: 9:24 AM Stop: 9:24 AM Medication: Versed Amount: 1 mg Route: I.V. Start: 9:24 AM Stop: 9:24 AM Medication: Fentanyl Amount: 50 mcg Route: I.V. Start: 9:49 AM Stop: 9:49 AM Medication: Versed Amount: 1 mg Route: I.V. Start: 9:49 AM Stop: 9:49 AM Medication: Fentanyl Amount: 50 mcg Route: I.V. I, the attending physician, have reviewed and verified all procedure medications. Yes, all medications given per verbal order History/Risk Factors Hypertension: Yes Dyslipidemia: Yes Peripheral Arterial Disease (PAD): Yes Obesity: No Renal Disease: No Tobacco Use: Current/Recent(w/in 1 year) Prior Interventions PCI: No CABG: No Valve Surgery: No Report Signatures Finalized by Parisa Augustin MD on 11/25/2020 06:01 PM
[2020-11-12] MEDS: diphenhydrAMINE 50 mg Capsule PO (08:04)
--- NOTE | 2020-11-12 09:06 | P.HPUD_ITS ---
Surgery/Procedure H&P Update DATE OF PROCEDURE: November 12, 2020 DATE H&P PERFORMED: 10/17/20 H&P UPDATE INFORMATION: I have reviewed H&P completed within last 30 days, I have examined patient prior to procedure and No changes to prior documentation PREOP DIAGNOSIS: Lifestyle limiting claudicationOf right leg, chronically occluded ostial SF PRIMARY INDICATION FOR PROCEDURE: evere lifestyle limiting claudication of both legs more on the left leg .[place] grade II, category 4:Dami stage III. Lifestyle limiting claudicationOf right leg, chronically occluded ostial SFA PLANNED PROCEDURE: Operation Date: 11/12/20 08:30 Proposed Procedures p Peripheral Diagnostic 48536 I73.9(Not Applicable) - Parisa Augustin MD PATIENT REASSESSED PRIOR TO SEDATION, WITH NO CHANGE NOTED: Yes PHYSICAL EXAM: alert, oriented x 3 and clear to auscultation bilaterally AIRWAY EVAL/ANESTHESIA PLAN: ASA II, Risks, benefits & alternatives of sedation and/or procedure discussed and Patient agrees to continue as planned ADDITIONAL INFORMATION: I have explained all risk benefit and alternative for the procedure. I have explained the risk of using drug-coated balloon and FDA warning that it increased mortality in subset population. Patient agrees to it and would like to use drug-coated balloon if I needed to.
--- NOTE | 2020-11-12 10:45 | PC.NURSE ---
From laborer cheesemaking Received pt from laborer cheesemaking via bed. Left groin with 6 Fr Sheath attached to Pressure bag No hematoma. No hematoma, swelling, bleeding noted. Doppled pulses. Skin is warm. Pt denies any pain or discomfort. Call light within reach.
--- NOTE | 2020-11-12 11:00 | PC.NURSE ---
Sheath removal Explained procedure to pt. Trendelenburg positioned. Left femoral artery felt palpable and doppled. 6 Fr sheath removed to left groin. Manual procedure held for 15 mins. Hemostasis achieved. No hematoma, swelling or bleeding noted. Pedal pulses are doppled. Skin is warm. Instructed pt to notify nurse for any unusual pain, pressure or wetness and bedrest for 6 hrs. Call light provided to pt. Pt verbalizes understanding.
--- NOTE | 2020-11-12 15:52 | PC.RESP ---
Smoking Cessation information sent to patient.
--- NOTE | 2020-11-12 19:00 | PC.NURSE ---
Discharge to home post angiogram home care instructions discuss to pt.
== END 2020-11-12 19:30 | disposition home or self-care (01) ==
LOC: CSU 09:28
PROVIDERS: Admitting Provider Internal Medicine Cardiovascular Disease; PCP Nurse Practitioner Family; Visit Provider Internal Medicine Cardiovascular Disease
DX: I70.201 Unspecified atherosclerosis of native arteries of extremities, right leg (principal); I25.10 Atherosclerotic heart disease of native coronary artery without angina pectoris; E11.9 Type 2 diabetes mellitus without complications; E78.5 Hyperlipidemia, unspecified; I10 Essential (primary) hypertension; Z82.49 Family history of ischemic heart disease and other diseases of the circulatory system; Z83.3 Family history of diabetes mellitus; F17.210 Nicotine dependence, cigarettes, uncomplicated
CPT/HCPCS: 36415; 75710; C1769; C1887; C1894; G0378; J1644; J2250; J3010; J7030; Q0163; Q9967

== ENCOUNTER → 2020-11-19 10:09 | Outpatient (BNVA) | payer MEDICARE, BC, SELFPAY | PROVIDERS: PCP Nurse Practitioner Family; Visit Provider Nurse Practitioner Family | DX: I73.9 Peripheral vascular disease, unspecified (principal) | CPT/HCPCS: 80048 ==

== ENCOUNTER → 2020-12-18 08:58 | Outpatient (BNVA) | payer MEDICARE, BC, SELFPAY | PROVIDERS: PCP Nurse Practitioner Family; Visit Provider Internal Medicine Cardiovascular Disease | DX: I73.9 Peripheral vascular disease, unspecified (principal); Z01.812 Encounter for preprocedural laboratory examination; Z20.822 Contact with and (suspected) exposure to COVID-19 | CPT/HCPCS: 80048; 85025; 85610; 87635 ==

== ENCOUNTER 2021-01-07 12:14 | Observation (INO) | payer MEDICARE, BC, SELFPAY ==
[2021-01-07 09:35] VITALS: BP 196/91; PULSE 80; RESP 16; TEMP 36.4; O2SAT 96; BMI 26.2
[2021-01-07] MEDS: diphenhydrAMINE 50 mg Capsule PO (09:46)
--- NOTE | 2021-01-07 12:50 | PM.HP ---
Providers/Chief Complaint Admitting Physician: Parisa Augustin MD Primary Care Provider: JOSE Paez Chief Complaint: peripheral diagnostic History of Present Illness Bandar Vee is a 75 year old male past medical history significant for hypertension hyperlipidemia history of tobacco abuse for lifestyle limiting claudication and chronically occluded SFA with failed antegrade approach through left common femoral couple of months back was brought in today for revascularization through right below the knee approach retrograde attempt/intervention. Patient was explained in detail all risk benefit and alternative for the procedure. Patient explained the risk for major minor bleed requiring transfusion acute limb ischemia requiring urgent emergent surgery and and worse case scenario amputation. Patient agreed to it. Patient was about to transfer to the [facility] when I was called by ER for left acute limb threatening ischemia. Patient procedure was postponed. Patient did not have transportation therefore requested that he should be placed in the hospital as he cannot go back and take care of himself at home. He has been admitted as an outpatient in the bed for observation overnight with possible procedure early in the morning. Continue current regimen continue to monitor. Review of Systems Skin/Breast: Reports: surgical incision Medications/Allergies Home Medications Medication Instructions Recorded Confirmed Last Taken Type insulin aspart U-100 100 unit/mL 1 sliding scale dose SUBCUT AC #10 08/22/20 01/07/21 11/11/20 16:30 Rx subcutaneous solution ml Lantus U-100 Insulin See Rx Instructions .ROUTE .COMPLEX 11/09/20 01/07/21 01/06/21 07:00 History amlodipine-atorvastatin 1 tab PO QAM 11/09/20 01/07/21 01/06/21 07:00 History aspirin 81 mg PO QAM 11/09/20 01/07/21 01/06/21 07:00 History gabapentin 200 mg PO BID 11/09/20 01/07/21 01/06/21 07:00 History clopidogrel 75 mg tablet 75 mg PO DAILY #90 tab 12/10/20 01/07/21 01/06/21 07:00 Rx Allergies Allergy/AdvReac Type Severity Reaction Status Date / Time Penicillins Allergy Unknown ALGY-Rash Verified 11/19/20 09:47 PFSH Acute PFSH: Medical History Bladder CA in situ Carotid arterial disease Claudication in peripheral vascular disease Diabetes mellitus Fracture of right tibia and fibula Hyperlipidemia Hypertension Surgical History H/O eye surgery H/O right cataract extraction H/O thumb surgery Family History Father CAD (coronary artery disease) Diabetes Family history of premature coronary artery disease Mother Cancer Denies family history of Clotting disorder Dementia Psychiatric illness Chronic kidney disease (CKD) Suicide Anesthesia complication Bleeding disorder Lung disease Hypertension Stroke Social History Smoking and tobacco status: current every day smoker cigars Cigars smoked per week: 5 Alcohol intake: never Vitals/I&O/Wt Last Vital Signs Temp 97.6 F 01/07/21 09:35 Pulse 80 01/07/21 09:35 Resp 16 01/07/21 09:35 BP 196/91 01/07/21 09:35 Pulse Ox 96 01/07/21 09:35 Weight last 48 hrs Weight 183 lb Physical Exam Narrative: EXAM NARRATIVE: GENERAL: Patient is alert, awake and oriented x3. NECK: No jugular vein distension. HEENT: No cyanosis. No icterus. No pallor. HEART: Regular S1 and S2. No murmur, rub or gallop. LUNGS: Clear to auscultate bilaterally. ABDOMEN: Soft, nontender and nondistended. Positive bowel sounds. No guarding, rebound or tenderness. CENTRAL NERVOUS SYSTEM: Grossly nonfocal. EXTREMITIES: Lower extremities without edema bilaterally. Pulses not palpable in the right lower extremity. A&P Assessment and plan (1) Claudication in peripheral vascular disease: Lifestyle limiting claudication of the right leg through below the knee approach due to failed antegrade attempt. Patient will be observed overnight for procedure tomorrow. Status: Acute (2) Hypertension: Well-controlled continue medicine Status: Acute Qualifiers: Hypertension type: essential hypertension Qualified Code(s): I10 - Essential (primary) hypertension (3) Hyperlipidemia: Continue statin. Status: Acute Qualifiers: Hyperlipidemia type: other hyperlipidemia Qualified Code(s): E78.49 - Other hyperlipidemia Attestations Medical Necessity Statement*: Patient require continuation hospitalization for above defined care Coding Level of Care Code Established Pt Acute Automobile Contract Clerk for Chg Fwd Patient Type Established History Detailed Exam Detailed Medical Decision Making Moderate Complexity Diagnoses Claudication in peripheral vascular disease I73.9 Hypertension I10 Hypertension type: essential hypertension Hyperlipidemia E78.49 Hyperlipidemia type: other hyperlipidemia
--- NOTE | 2021-01-07 14:41 | PC.NURSE ---
Orders clarified with Dr. Augustin via telephone. No fluids are to be administered now. Start IVF at 50 ml/hr at 0500 before cath and administer precath benadryl po. Start patient on medium dose sliding scale insulin, stop home dose. place on hypoglycemic protocol. RBTO.
[2021-01-07 16:30] VITALS: BP 152/77; PULSE 58; RESP 14; TEMP 36.7; O2SAT 93
[2021-01-07 17:20] LABS: Glucose Point of Care 199 mg/dL (70-110)
[2021-01-07] MEDS: gabapentin 100 mg Capsule 200 MG PO (17:36)
[2021-01-07] MEDS: insulin glargine 100 units/1 mL 32 UNIT SUBCUT (17:37)
[2021-01-07 19:12] VITALS: BP 151/91; PULSE 63; RESP 26; TEMP 36.8; O2SAT 95
[2021-01-07 20:24] LABS: Glucose Point of Care 222 mg/dL (70-110)
[2021-01-07] MEDS: atorvastatin 40 mg Tablet 20 MG PO (20:53)
[2021-01-07 23:11] VITALS: BP 150/81; PULSE 56; RESP 28; TEMP 36.6; O2SAT 95
[2021-01-08] VITALS (102 sets, daily range): BP systolic 97–239; BP diastolic 55–124; PULSE 43–119; RESP 12–26; TEMP 36.7–37.3; O2SAT 90–99
[2021-01-08] MEDS: diphenhydrAMINE 50 mg Capsule PO (04:42)
[2021-01-08] MEDS: aspirin 81 mg EC Tablet PO (04:43)
[2021-01-08] MEDS: sodium chloride 0.9% 1,000 ML 50 ML IV ×3 (04:44→04:47)
--- NOTE | 2021-01-08 05:00 | XACV_ITS ---
Ht: 178 cm Wt: 83 kg BSA: 2.04 m2 Any Known Allergies: Penicillins Gender: Male : 1945 Exam Type: Invasive Peripheral Vascular Procedure(s): Procedure Description: Peripheral Cath Diagnostic Procedure Procedure Description: Peripheral vascular Intervention Procedure Description: PV Balloon Procedure Description: PV Atherectomy Exam Priority: Routine Lower Extremity Interventional Findings Reason for angiogram: Lifestyle limiting claudication, patient was brought in as couple of weeks ago we tried to revascularize chronically occluded ostial to distal right SFA through antegrade approach through left common femoral artery. Due to unsuccessful attempt patient was brought in today from popliteal approach. After somewhat difficulty we were able to cross into the distal SFA in retrograde fashion all the way traversing the long lesion through right ostial SFA. Viper wire was exchanged with the help of seeker. Using 2.0 CSI atherectomy distal to proximal SFA was atherectomized. Balloon angioplasty was performed using [place] balloon. Please see the inventory. Excellent angiographic result was noted ostial to distal right SFA was noted to be patent. Good one-vessel runoff was noted below the knee. Anterior posterior tibial arteries are occluded in the proximal segment but reconstitute in the distal segments. Post procedure dopplerable anterior posterior tibial pulses noted.. Recommendations 1-Return to inpatient for close monitoring and routine cath care 2-Risk factor modification for secondary prevention 3-Statin and aspirin 81 mg life--long, if tolerated 4-Patient was pre-loaded with 300 mg of Plavix, continue Plavix 75mg p.o. daily for at least for three months. 5-Continue optimal medical management 6-Follow up with Dr. Augustin in four weeks and your primary care in 10 days. Hemodynamic Data Phase:Rest AO : 104.0 / 63.0 ( 78.0 ) @ 6:30:00 AM Access Site Site: Right Popliteal Sheath Size: 6 Fr Hemost... Method: Suture Hemost... Success: Successful Procedure Details Findings Procedure Consent Obtained. Pre-Procedure Time Out. Identified patient by full name and date of as verbalized by the patient/guarantor. Does the consent match the physician's order: Yes. Accurate & Complete Informed Consent: Yes. Inpatient/Outpatient History & Physical on Chart: Yes. If H&P is completed, is and addenduem needed: No; If yes, is the addendum complete: N/A. Visualize and Verify Site with Patient/Guarantor: N/A. Relevant Radiology Images available: Yes. The risks, benefits, and alternatives of sedation and/or procedure were discussed by physician. The patient agrees to continue. Procedure started. Correct patient, site and procedure confirmed by cath team. Current diagnosis: PVD. PERRLA. Strong, equal hand shoe repairer apprentice bilaterally. Lungs clear x 5 lobes. IV Site on Arrival: 20 gauge in the left forearm. IV Fluids: 0.9% NaCl at KVO. 50 mL infused prior to filling station laborer. Pre Procedural Pulses: right radial was 2+. Pre Procedural Pulses: right dorsalis pedis was Absent. Pre Procedural Pulses: left dorsalis pedis was 1+. Pre Procedural Pulses: right posterior tibial was Doppled. Pre Procedural Pulses: left posterior tibial was 3+. Oxygen started at 2liters/min via nasal canula. bilateral groins was prepped with chloroprep then draped in the usual sterile fashion. Physician notified. Baseline sample Acquired. HR: 65 BPM. Equipment: 6F - Femoral. Cardiac Cath Pack. ACIST Manifold Kit Model BT 2000. Heparinized Saline (2 units/mL), 1000 mL bag. Kit, Micropuncture. Physician arrived. Physician scrubbed in. Time out performed with cath team. Lidocaine 1% infiltrated to the right posterior tibial. Attempt to gain PT access in the right lower extremity with the assistance of ultrasound unsuccessful at this time. right popliteal was prepped with chloroprep then draped in the usual sterile fashion. Lidocaine 1% infiltrated to the right popliteal. Arterial access obtained with pedal access micropuncture set. Lidocaine 1% infiltrated to the right popliteal. seeker inserted over glaide wire. Side port of sheath attached to Normal Saline flush at KVO to maintain patency. wire out. viper wire inserted. seeker removed. richard inserted. atherectomy performed in right SFA. richard removed. Seeker catheter inserted over the wire. viper wire removed. Glidewire inserted. seeker removed. Inflation number : 1 A AB [place] 35 DESIGN/ANIMATION INSTRUCTOR Catheter [id number] was prepped and advanced across the Superficial Femoral, Right , then inflated to 6 GEOVANNI for 2:05 seconds. Inflation number: 2 The AB [place] 35 DESIGN/ANIMATION INSTRUCTOR Catheter [id number] was reinflated across the Superficial Femoral, Right, to 8 GEOVANNI for 2:03 seconds. Balloon out over wire. Right popliteal selected and arteriogram with runoff performed @ 10 mL/sec for a total of 30 mL. results checked. Glidewire removed. lower right leg runoff performed 10mL/sec for a total of 20mL. A Suture was successful obtaining hemostatsis at the Right Popliteal insertion site. Sheath(s) sutured into position with 2-0 silk and sterile 4x4's and Op-site applied over the site. No oozing or signs and symptoms of hematoma noted. Arterial sheath flushed and connected to tranducer and pressure bag with heparinized saline. Post Procedure: Pulses reassessed and unchanged. PERRLA. Strong, equal hand shoe repairer apprentice bilaterally. No VTE prophylaxis required. Medication's Wasted: Verapamil = 4 mg. Medication's Wasted: Nitro = 49.1 mcg. Medication's Wasted: Heparin = 2000 units. Medication's Wasted: Lidocaine 1% = 10 mL. Total IV fluids: 180 mL. Fluoro: 12:50. Contrast type used: Visipaque 320 mgI/mL, 500 mL bottle. [id number]. Post-op diagnosis: severe PAD with lifestyle limiting claudication/complete occuled SFA. Complications: none. Estimated blood loss: 5mL-10mL. Procedure completed. Patient transferred by bed to 1st floor. Vital chart was stopped. Procedure Medications Start: 6:05 AM Stop: 6:05 AM Medication: Versed Amount: 1 mg Route: I.V. Start: 6:05 AM Stop: 6:05 AM Medication: Fentanyl Amount: 50 mcg Route: I.V. Start: 6:14 AM Stop: 6:14 AM Medication: Versed Amount: 1 mg Route: I.V. Start: 6:14 AM Stop: 6:14 AM Medication: Fentanyl Amount: 50 mcg Route: I.V. Start: 6:25 AM Stop: 6:25 AM Medication: Versed Amount: 1 mg Route: I.V. Start: 6:25 AM Stop: 6:25 AM Medication: Fentanyl Amount: 50 mcg Route: I.V. Start: 7:07 AM Stop: 7:07 AM Medication: Fentanyl Amount: 50 mcg Route: I.V. Start: 7:08 AM Stop: 7:08 AM Medication: Versed Amount: 1 mg Route: I.V. Start: 7:22 AM Stop: 7:22 AM Medication: Versed Amount: 1 mg Route: I.V. Start: 7:22 AM Stop: 7:22 AM Medication: Fentanyl Amount: 50 mcg Route: I.V. Start: 7:40 AM Stop: 7:40 AM Medication: Versed Amount: 1 mg Route: I.V. Start: 7:40 AM Stop: 7:40 AM Medication: Fentanyl Amount: 50 mcg Route: I.V. Start: 7:41 AM Stop: 7:41 AM Medication: Heparin Amount: 7000 units Route: I.V. Start: 7:56 AM Stop: 7:56 AM Medication: Nitrogylcerin Amount: 400 mcg Route: I.A. Start: 8:03 AM Stop: 8:03 AM Medication: Nitrogylcerin Amount: 400 mcg Route: I.A. I, the attending physician, have reviewed and verified all procedure medications. Yes, all medications given per verbal order History/Risk Factors Hypertension: Yes Dyslipidemia: Yes Peripheral Arterial Disease (PAD): Yes Obesity: No Renal Disease: No Tobacco Use: Current/Recent(w/in 1 year) Prior Interventions PCI: No CABG: No Valve Surgery: No Report Signatures Finalized by Parisa Augustin MD on 01/21/2021 08:02 PM
--- NOTE | 2021-01-08 05:53 | PC.NURSE ---
NURSE NOTE: ETL CONSULTANT: PT TRANSPORTED TO ETL CONSULTANT PER BED PER INDU RN AT 0530 THIS MORNING. PT ALERT AND ORIENTED X4 UPON TRANSFER. ALL VS AND ASSESSMENTS CHARTED.
--- NOTE | 2021-01-08 05:56 | W.PM.OPSUD ---
Surgery/Procedure H&P Update DATE OF PROCEDURE: January 08, 2021 DATE H&P PERFORMED: 01/07/21 H&P UPDATE INFORMATION: I have reviewed H&P completed within last 30 days and I have examined patient prior to procedure PREOP DIAGNOSIS: Lifestyle limiting claudicationOf right leg, chronically occluded ostial SF PLANNED PROCEDURE: Operation Date: 01/07/21 10:00 Proposed Procedures p Peripheral Diagnostic 04002 I73.9(Not Applicable) - Parisa Augustin MD PATIENT REASSESSED PRIOR TO SEDATION, WITH NO CHANGE NOTED: Yes PHYSICAL EXAM: alert, oriented x 3 and clear to auscultation bilaterally AIRWAY EVAL/ANESTHESIA PLAN: ASA II, Risks, benefits & alternatives of sedation and/or procedure discussed and Patient agrees to continue as planned
--- NOTE | 2021-01-08 08:28 | PM.PN ---
Subjective Subjective: Interval history: Status post peripheral angiogram CSI atherectomy and balloon angioplasty of right SFA from ostium to distal segment with good angiographic result through popliteal approach. Vitals/I&O/Wt Last Vital Signs Temp 98.1 F 01/08/21 03:42 Pulse 55 L 01/08/21 03:42 Resp 26 H 01/08/21 03:42 BP 137/73 01/08/21 03:42 Pulse Ox 94 01/08/21 03:42 01/07/21 01/08/21 01/08/21 22:59 06:59 14:59 Intake Total 2.5 / 2.5 Output Total 250 / 250 450 / 700 Balance -250 / -250 -447.5 / -697.5 Weight last 48 hrs Weight 183 lb Physical Exam Narrative: EXAM NARRATIVE: GENERAL: Patient is alert, awake and oriented x3. NECK: No jugular vein distension. HEENT: No cyanosis. No icterus. No pallor. HEART: Regular S1 and S2. No murmur, rub or gallop. LUNGS: Clear to auscultate bilaterally. ABDOMEN: Soft, nontender and nondistended. Positive bowel sounds. No guarding, rebound or tenderness. CENTRAL NERVOUS SYSTEM: Grossly nonfocal. EXTREMITIES: Lower extremities without edema bilaterally. Pulses dopplerable anterior posterior tibial and right foot. Good color Const: COMMON NORMALS: alert Resp: COMMON NORMALS: clear to auscultation bilaterally AUSCULTATION: clear to auscultation bilaterally Neuro: SENSORIUM/ORIENTATION: Yes alert A&P Assessment and plan (1) Claudication in peripheral vascular disease: S/p arthrectomy balloon angioplasty of the right SFA with excellent angiographic result. Continue aspirin statin and Plavix. Status: Acute (2) Hypertension: Will optimize medicine. Status: Acute Qualifiers: Hypertension type: essential hypertension Qualified Code(s): I10 - Essential (primary) hypertension (3) Hyperlipidemia: Continue statin. Status: Acute Qualifiers: Hyperlipidemia type: other hyperlipidemia Qualified Code(s): E78.49 - Other hyperlipidemia Attestations Medical Necessity Statement*: Patient require continuation hospitalization post procedure most likely discharge tomorrow. Coding Level of Care Code Established Pt Acute Supervisor Pressing Department for Tye Fwd Patient Type Established History Detailed Exam Detailed Medical Decision Making Moderate Complexity Diagnoses Claudication in peripheral vascular disease I73.9 Hypertension I10 Hypertension type: essential hypertension Hyperlipidemia E78.49 Hyperlipidemia type: other hyperlipidemia
[2021-01-08] MEDS: sodium chloride 0.9% 1,000 ML 100 ML IV (08:30)
--- NOTE | 2021-01-08 08:30 | PC.NURSE ---
Patient to CSU from laboratory clerk. 2 nurse verification of insertion site, connected to pressure bag, asymptomatic. Patient oriented to room and call light. Patient educated on activity restrictions. Verbalized understanding. Nurse to continue to monitor.
[2021-01-08 09:03] LABS: Glucose Point of Care 183 mg/dL (70-110)
[2021-01-08] MEDS: amlodipine 5 mg Tablet PO (09:04)
[2021-01-08] MEDS: gabapentin 100 mg Capsule 200 MG PO ×2 (09:04→17:28)
[2021-01-08] MEDS: clopidogrel 75 mg Tablet PO (09:05)
--- NOTE | 2021-01-08 09:58 | PC.CHAP ---
Pastoral Care Encounter/Spiritual Assessment Type of Contact [] Declined insurance adjustor visit [] Patient/Family/Request visit [] Outpatient visit [] Follow-up visit [] Physician referral [] Code/Alert [x] Routine visit [] Staff referral [] Actively dying [x] Patient sleeping [] Family support [] [] Out of room [] Palliative care [] [] Receiving care in room [] Pre-surgical visit [] Trauma [] Long length of stay [] ICU visit [] Other: Relational/Emotional Strength [] Patient feels connected with others/family/visitors/staff [] Distress [] Loneliness/isolation [] Abandonment Spirituality of Patient [] Person of Jenna [] Attends Gnosticism of their Jenna [] Believes in Prayer [] Reads Bible or Pentecostal materials [] There are Spiritual issues to be addressed Managing Principal Interventions [x] Prayer [] Active listening [] Non-anxious presence [] Spiritual/emotional support [] Crisis/trauma care [] Spiritual counseling [] Bereavement support [] Provided bereavement packet [] Provided Bible/devotional materials [] Provided toy/stuffed animal, coloring book to patient or family member [] Provided Communion [] Anointing/[place] [] Salvation [x] Completed spiritual assessment [] Other: Impact on Illness or Injury [] Angry [] Fearful [] Anxious [] Often cries [] Exhaustion [] Unable to work [] Unable to attend yazidi [] Unable to walk/stand [] Unable to read [] Unable to drive [] Unable to eat/drink [] Unable to sleep [] Unable to be with family [] Patient intubated [] Other: Summary Time spent with patient
--- NOTE | 2021-01-08 10:02 | PC.NURSE ---
Dr. Augustin notified of patient VS. Patient asymptomatic. Telephone order received to start nitro gtt per HTN protocol and discontinue IV fluids. RBTO.
[2021-01-08] MEDS: nitroglycerin drip 50 MG/250 ML PREMIX IV (10:10)
--- NOTE | 2021-01-08 11:01 | PC.NURSE ---
Dr. Augustin updated on patient VS. Telephone order for 10 mg hydralazine IVP once. RBVO.
[2021-01-08] MEDS: hyDRALAzine 20 mg/mL INJ 1 mL 10 MG IVP (11:11)
--- NOTE | 2021-01-08 11:48 | PC.NURSE ---
Pt reports nausea. States not bad but, it is preventing him from eating lunch.
[2021-01-08 11:49] LABS: Partial Thromboplastin Time 121.9 SECONDS (23.9-36.7)
--- NOTE | 2021-01-08 11:53 | PC.NURSE ---
Patient reports nausea. Dr. Augustin notified. Telephone order received for zofran 4 mg q 4 hour prn. RBTO.
[2021-01-08 12:01] LABS: Glucose Point of Care 212 mg/dL (70-110)
[2021-01-08] MEDS: ondansetron 2 mg/ML SDV 2 mL 4 MG IVP (12:02)
--- NOTE | 2021-01-08 12:31 | PC.NURSE ---
Dr. Augustin notified of PTT result at 1150. No answer, nurse waiting further orders. Telephone order to recheck STAT. Order implemented.
[2021-01-08 13:14] LABS: Partial Thromboplastin Time 34.8 SECONDS (23.9-36.7)
[2021-01-08] MEDS: cloNIDine 0.1 mg Tablet 0.2 MG PO (13:18)
--- NOTE | 2021-01-08 15:13 | PC.NURSE ---
Dr. Augustin updated on patient VS and PTT. Telephone order to discontinue nitro gtt. Physician to report to bedside to pull sheath. Nurse to continue to monitor.
--- NOTE | 2021-01-08 16:59 | PC.NURSE ---
Sheath pulled by Dr. Augustin at 1536. Physician held direct pressure for 10 minutes then instructed nurse to continue holding pressure for 10 minutes. Order implemented. Hemostasis achieved. Dressing applied. CDI. Patient tolerated well. Verbal order from Dr. Augustin to keep patient BR for 3 hours. Patient can ambulate at 1900. Patient educated on activity restrictions, verbalized understanding. Nurse to continue to monitor.
[2021-01-08 17:05] LABS: Glucose Point of Care 244 mg/dL (70-110)
[2021-01-08] MEDS: insulin glargine 100 units/1 mL 32 UNIT SUBCUT (17:34)
[2021-01-08 20:51] LABS: Glucose Point of Care 291 mg/dL (70-110)
[2021-01-09 03:00] VITALS: BP 120/60; PULSE 60; RESP 16; O2SAT 93
[2021-01-09 04:09] LABS: Basophils # 0.1 10^3/uL (0.0-0.1); Basophils % 0.5 %; Eosinophils # 0.2 10^3/uL (0.0-0.8); Hematocrit 46.1 % (42.0-52.0); Hemoglobin 15.6 g/dL (11.7-16.6); Lymphocytes # 2.4 10^3/uL (0.8-4.8); Mean Corpuscular HGB Conc 33.8 g/dL (30.0-36.0); Mean Corpuscular Hemoglobin 32.4 pg (28.0-34.0); Mean Corpuscular Volume 95.6 fL (80-94); Mean Platelet Volume 9.7 fL (7.4-10.4); Monocytes # 1.4 10^3/uL (0.2-0.9); Monocytes % 12.3 %; Neutrophils # 6.98 10^3/uL (1.8-7.7); Nucleated Red Blood Cells % 0 %; Platelet Count 179 10^3/cmm (130-400); Red Blood Count 4.82 10^6/uL (4.1-5.3); Red Cell Distribution Width 13.3 % (12.1-15.1); White Blood Count 11.1 10^3/uL (4.0-10.0)
[2021-01-09 04:31] LABS: Anion Gap 13.4 (5-19); Blood Urea Nitrogen 19 mg/dL (8-23); Calcium 8.6 mg/dL (8.5-10.5); Carbon Dioxide 24 mmol/L (22-29); Chloride 105 mmol/L (98-107); Glucose 156 mg/dL (65-115); Osmolality Calculated 291 mOsm/kg (285-295); Potassium 4.4 mmol/L (3.5-5.1); Sodium 138 mmol/L (136-145)
[2021-01-09 05:46] VITALS: PULSE 56
[2021-01-09] MEDS: insulin glargine 100 units/1 mL 40 UNIT SUBCUT (06:20)
[2021-01-09] MEDS: aspirin 81 mg EC Tablet PO (06:21)
[2021-01-09 06:27] LABS: Glucose Point of Care 151 mg/dL (70-110)
[2021-01-09 07:53] VITALS: BP 141/69; PULSE 68; RESP 17; TEMP 37.1; O2SAT 92
[2021-01-09] MEDS: clopidogrel 75 mg Tablet PO (08:24)
[2021-01-09] MEDS: gabapentin 100 mg Capsule 200 MG PO (08:24)
[2021-01-09] MEDS: amlodipine 5 mg Tablet PO (08:25)
--- NOTE | 2021-01-09 08:59 | PM.DCS ---
Discharge Providers Date of Admission: 01/07/21 12:14 Date of Discharge: January 09, 2021 Attending Provider at Admission: Parisa Augustin MD Attending Provider at Discharge: Parisa Augustin MD Primary Care Provider: JOSE Paez Diagnoses at Discharge Discharge Diagnosis (1) Claudication in peripheral vascular disease: Status: Acute (2) Hypertension: Status: Acute Qualifiers: Hypertension type: essential hypertension Qualified Code(s): I10 - Essential (primary) hypertension (3) Hyperlipidemia: Status: Acute Qualifiers: Hyperlipidemia type: other hyperlipidemia Qualified Code(s): E78.49 - Other hyperlipidemia Reason for Visit Reason for Visit: peripheral diagnostic Hospital Course Hospital Course 75-year-old male past medical history significant for hypertension hyperlipidemia coronary artery disease carotid disease severe peripheral vascular disease with lifestyle limiting claudication history of failed attempt to chronically occluded right SFA underwent right SFA intervention through popliteal approach yesterday. We were able to revascularize SFA using arthrectomy and balloon angioplasty. Excellent angiographic result with good flow was restored from all the way common iliac to two-vessel runoff below the knee. Post intervention patient had high blood pressure which was treated with IV nitro since he did not take his home meds. After optimization of medicine and giving home meds his blood pressure settled down, no overnight event happened otherwise. Patient is walking around without any problem. There is no hematoma. He has good dopplerable anterior posterior tibial pulses. His foot looks good. He will be discharged home today. I will continue statin aspirin and Plavix. Physical Exam Narrative: EXAM NARRATIVE: GENERAL: Patient is alert, awake and oriented x3. NECK: No jugular vein distension. HEENT: No cyanosis. No icterus. No pallor. HEART: Regular S1 and S2. No murmur, rub or gallop. LUNGS: Clear to auscultate bilaterally. ABDOMEN: Soft, nontender and nondistended. Positive bowel sounds. No guarding, rebound or tenderness. CENTRAL NERVOUS SYSTEM: Grossly nonfocal. EXTREMITIES: Lower extremities without edema bilaterally. Pulses dopplerable in the lower extremities, both dorsalis pedis and posterior tibial. 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 for service Routin e Exams 01/08/21 05:00 Taken Labs from last 24 hours 01/09/21 01/09/21 01/09/21 06:18 04:01 04:01 WBC 11.1 H RBC 4.82 Hgb 15.6 Hct 46.1 MCV 95.6 H MCH 32.4 MCHC 33.8 RDW 13.3 Plt Count 179 MPV 9.7 Neut % (Auto) 63.0 Lymph % (Auto) 22.0 [place] % (Auto) 12.3 Eos % (Auto) 2.0 Baso % (Auto) 0.5 Neut # (Auto) 6.98 Lymph # (Auto) 2.4 [place] # (Auto) 1.4 H Eos # (Auto) 0.2 Baso # (Auto) 0.1 Nucleated RBC % (a uto) 0 Nucleated RBCs # 0.0 APTT Sodium 138 Potassium 4.4 Chloride 105 Carbon Dioxide 24 Anion Gap 13.4 BUN 19 Creatinine 1.1 GFR Calculation Not Reportable Glucose 156 H POC Glucose 151 H Calculated Osmolal ity 291 Calcium 8.6 01/08/21 01/08/21 01/08/21 20:30 17:01 12:40 WBC RBC Hgb Hct MCV MCH MCHC RDW Plt Count MPV Neut % (Auto) Lymph % (Auto) [place] % (Auto) Eos % (Auto) Baso % (Auto) Neut # (Auto) Lymph # (Auto) [place] # (Auto) Eos # (Auto) Baso # (Auto) Nucleated RBC % (a uto) Nucleated RBCs # APTT 34.8 D Sodium Potassium Chloride Carbon Dioxide Anion Gap BUN Creatinine GFR Calculation Glucose POC Glucose 291 H 244 H Calculated Osmolal ity Calcium 01/08/21 01/08/21 01/08/21 11:43 10:55 08:59 WBC RBC Hgb Hct MCV MCH MCHC RDW Plt Count MPV Neut % (Auto) Lymph % (Auto) [place] % (Auto) Eos % (Auto) Baso % (Auto) Neut # (Auto) Lymph # (Auto) [place] # (Auto) Eos # (Auto) Baso # (Auto) Nucleated RBC % (a uto) Nucleated RBCs # APTT 121.9 H Sodium Potassium Chloride Carbon Dioxide Anion Gap BUN Creatinine GFR Calculation Glucose POC Glucose 212 H 183 H Calculated Osmolal ity Calcium Vitals: Last Vital Signs Temp 98.7 F 01/09/21 07:53 Pulse 68 01/09/21 07:53 Resp 17 01/09/21 07:53 BP 141/69 01/09/21 07:53 Pulse Ox 92 01/09/21 07:53 Discharge Plan Discharge Patient Disposition: Home Condition: Stable Prescriptions: Continued insulin aspart U-100 [Novolog U-100 Insulin aspart] 100 unit/mL solution 1 sliding scale dose SUBCUT AC Qty: 10 RF: 2 clopidogrel 75 mg tablet 75 mg PO DAILY Qty: 90 RF: 1 amlodipine-atorvastatin 5-20 mg tablet 1 tab PO QAM RF: 0 Lantus U-100 Insulin 100 unit/mL solution See Rx Instructions .ROUTE .COMPLEX RF: 0 aspirin 81 mg tablet,delayed release (DR/EC) 81 mg PO QAM RF: 0 gabapentin 100 mg capsule 200 mg PO BID RF: 0 Discharge Orders: Discharge Order (Routine); Ordered 01/09/21 Ordered By: Parisa Augustin Discharge Diet: Advance as tolerated Discharge Activity: Increase activity as tolerated Patient Instructions: Peripheral Vascular Angioplasty (DC), Opioid Safety Activity Restrictions/Additional Instructions: Follow-up with Halley Choudhury in 10 days. Follow-up with Dr. Augustin in 3 months. Discharge Attestations Time Spent in Discharge Care*: less than 30 min Specific Discharge Activities: educating patient Quality Metrics Clinical Quality Measures During this hospital stay, did patient experience: None Coding Level of Care Code Acute Chg FW DC note Exam Expanded Problem Focused Diagnoses Claudication in peripheral vascular disease I73.9 Hypertension I10 Hypertension type: essential hypertension Hyperlipidemia E78.49 Hyperlipidemia type: other hyperlipidemia
[2021-01-09 09:15] VITALS: BP 141/69; PULSE 68; RESP 17; TEMP 37.1; O2SAT 92
--- NOTE | 2021-01-09 10:00 | PC.NURSE ---
patient provided with discharge instructions and follow up care instructions patient educated on post procedure restrictions patient verbalized understanding
--- NOTE | 2021-01-10 11:47 | PC.RESP ---
SMOKING CESSATION INFORMATION SENT TO PATIENT.
== END 2021-01-09 11:15 | disposition home or self-care (01) ==
LOC: CSU 12:20
PROVIDERS: Admitting Provider Internal Medicine Cardiovascular Disease; PCP Nurse Practitioner Family; Visit Provider Internal Medicine Cardiovascular Disease
DX: I70.203 Unspecified atherosclerosis of native arteries of extremities, bilateral legs (principal); I10 Essential (primary) hypertension; E78.49 Other hyperlipidemia; E78.5 Hyperlipidemia, unspecified; I25.10 Atherosclerotic heart disease of native coronary artery without angina pectoris; Z79.4 Long term (current) use of insulin; Z82.49 Family history of ischemic heart disease and other diseases of the circulatory system
CPT/HCPCS: 36415; 36416; 37224; 37225; 75710; 80048; 82962; 85025; 85730; 96372; C1724; C1725; C1769; C1887; C1894; G0378; J0360; J1644; J1815 ×2; J2250; J2405; J3010; J3490; J7030; Q0163; Q9967

== ENCOUNTER → 2021-01-22 09:07 | Outpatient (BNVA) | payer MEDICARE, BC, SELFPAY | PROVIDERS: PCP Nurse Practitioner Family; Visit Provider Nurse Practitioner Family | DX: I10 Essential (primary) hypertension (principal); E11.9 Type 2 diabetes mellitus without complications; E78.5 Hyperlipidemia, unspecified; E78.49 Other hyperlipidemia; Z79.02 Long term (current) use of antithrombotics/antiplatelets; Z51.81 Encounter for therapeutic drug level monitoring | CPT/HCPCS: 80053; 80061; 83036; 85025 ==

== ENCOUNTER → 2021-05-28 09:48 | Outpatient (BNVA) | payer MEDICARE, BC, SELFPAY | PROVIDERS: PCP Nurse Practitioner Family; Visit Provider Nurse Practitioner Family | DX: E11.9 Type 2 diabetes mellitus without complications (principal); I10 Essential (primary) hypertension; Z79.01 Long term (current) use of anticoagulants | CPT/HCPCS: 80053; 83036; 85025 ==

== ENCOUNTER → 2021-09-03 09:37 | Outpatient (BNVA) | payer MEDICARE, BC, SELFPAY | PROVIDERS: PCP Nurse Practitioner Family; Visit Provider Nurse Practitioner Family | DX: I10 Essential (primary) hypertension (principal); E11.9 Type 2 diabetes mellitus without complications; E78.5 Hyperlipidemia, unspecified; Z79.01 Long term (current) use of anticoagulants | CPT/HCPCS: 80053; 80061; 83036; 85025 ==

== ENCOUNTER → 2021-12-09 14:34 | Outpatient (BNVA) | payer MEDICARE, BC, SELFPAY | PROVIDERS: PCP Nurse Practitioner Family; Visit Provider Internal Medicine | DX: I73.9 Peripheral vascular disease, unspecified (principal); I10 Essential (primary) hypertension; E78.49 Other hyperlipidemia; M79.605 Pain in left leg; M79.604 Pain in right leg; E11.51 Type 2 diabetes mellitus with diabetic peripheral angiopathy without gangrene; F17.290 Nicotine dependence, other tobacco product, uncomplicated; Z79.4 Long term (current) use of insulin; Z79.84 Long term (current) use of oral hypoglycemic drugs | CPT/HCPCS: 99214 ==

== ENCOUNTER 2022-02-21 11:08 | Outpatient (CLI) | payer MEDICARE, BC, SELFPAY ==
--- NOTE | 2022-02-21 11:15 | USCV_ITS ---
Mariusz Bandar Age: 76 Gender: M : 1945 Exam Date: 02/21/2022 11:23 Ordering Phys: Aron Rivers M.D ([email or web address]) Technologist: Mattie Falcon Exam Location: [facility] [place] Indication: leg pain Risk Factors: diabetes, Previous Vascular Surgery: RT FA stent, LT FA balloon RIGHT LEFT BP: 117.0 / 70.00 BP: 121.0/ 80.00 0 0 Waveform Velocity (cm/s) Velocity (cm/s) Waveform Triphasic 81.2 Iliac Prox 185.2 Triphasic Triphasic 104.6 Iliac Mid 181.6 Triphasic Triphasic 111.7 Iliac Distal 176.2 Triphasic Triphasic 108.1 [employer]IC 70.5 Triphasic Biphasic 56.4 SFA Prox 44.3 Triphasic N/A SFA Mid Triphasic 43.6 N/A SFA Dist 48.1 Triphasic Monophasic 23.6 POP 47.4 Triphasic Monophasic 19.4 PRESSURE WASHER 35.9 Biphasic N/A DPA 15.9 Biphasic 0.7 ROLLY 1.0 FINDINGS RT DPA not found, RT PRESSURE WASHER - 88mmHg LT DPA 104 mmHg, LT PRESSURE WASHER - 120 RLE- no flow is found in the distal superficial femoral artery - history of right FA stent. Right popliteal artery exhibits monophasic flow, right PRESSURE WASHER exhibits monophasic flow. No flow found in right DPA. LLE- patient states he thinks he had balloon in left femoral artery or possibly stent. No stent was seen in left FA. Normal triphasic flow seen in left iliac, [employer] MECH[employer]IC, FA, popliteal artery. Biphasic flow seen in left PRESSURE WASHER and DPA. CONCLUSIONS #1. Resting ROLLY of 0.7 on the right and 1.0 on the left. #2. Features of total occlusion of the mid and distal superficial femoral artery on the right side (stent occlusion ?) with a sluggish flow in the popliteal and posterior tibial artery. The dorsalis pedis artery appears to be occluded. #3. No significant arterial obstruction on the left side Dr. Rivers was informed about these findings Dr Dmitriy Lala MD [facility] (Electronically Signed) Final Date: 21 February 2022 20:11 S
== END 2022-02-21 11:09 | disposition home or self-care (01) ==
PROVIDERS: PCP Nurse Practitioner Family; Visit Provider Internal Medicine
DX: M79.606 Pain in leg, unspecified (principal); E11.51 Type 2 diabetes mellitus with diabetic peripheral angiopathy without gangrene
CPT/HCPCS: 93925

== ENCOUNTER → 2022-03-20 09:39 | Outpatient (BNVA) | payer MEDICARE, BC, SELFPAY | PROVIDERS: PCP Nurse Practitioner Family; Visit Provider Nurse Practitioner Family | DX: I10 Essential (primary) hypertension; R53.83 Other fatigue; E55.9 Vitamin D deficiency, unspecified; M79.606 Pain in leg, unspecified; Z79.01 Long term (current) use of anticoagulants; E10.51 Type 1 diabetes mellitus with diabetic peripheral angiopathy without gangrene; E78.49 Other hyperlipidemia | CPT/HCPCS: 80053; 80061; 82306; 83036; 83735; 85025 ==

== ENCOUNTER → 2022-08-27 14:34 | Outpatient (BNVA) | payer MEDICARE, SELFPAY | PROVIDERS: PCP Nurse Practitioner Family; Visit Provider Internal Medicine | DX: I73.9 Peripheral vascular disease, unspecified (principal); I10 Essential (primary) hypertension; M79.606 Pain in leg, unspecified; E78.49 Other hyperlipidemia; F17.290 Nicotine dependence, other tobacco product, uncomplicated; E11.51 Type 2 diabetes mellitus with diabetic peripheral angiopathy without gangrene; Z79.84 Long term (current) use of oral hypoglycemic drugs | CPT/HCPCS: 99214 ==

== ENCOUNTER → 2022-10-06 09:11 | Outpatient (BNVA) | payer MEDICARE, SELFPAY | PROVIDERS: PCP Nurse Practitioner Family; Visit Provider Nurse Practitioner Family | DX: E11.51 Type 2 diabetes mellitus with diabetic peripheral angiopathy without gangrene (principal); I70.209 Unspecified atherosclerosis of native arteries of extremities, unspecified extremity; I10 Essential (primary) hypertension; I73.9 Peripheral vascular disease, unspecified; Z79.01 Long term (current) use of anticoagulants; E11.9 Type 2 diabetes mellitus without complications; E10.51 Type 1 diabetes mellitus with diabetic peripheral angiopathy without gangrene; E78.49 Other hyperlipidemia | CPT/HCPCS: 80053; 80061; 83036 ==

== ENCOUNTER → 2023-05-27 13:20 | Outpatient (BNVA) | payer MEDICARE, SELFPAY | PROVIDERS: PCP Nurse Practitioner Family; Visit Provider Internal Medicine | DX: E11.51 Type 2 diabetes mellitus with diabetic peripheral angiopathy without gangrene (principal); I10 Essential (primary) hypertension; E78.49 Other hyperlipidemia; E11.69 Type 2 diabetes mellitus with other specified complication; Z79.4 Long term (current) use of insulin; I70.209 Unspecified atherosclerosis of native arteries of extremities, unspecified extremity; F17.290 Nicotine dependence, other tobacco product, uncomplicated | CPT/HCPCS: 99214 ==

== ENCOUNTER → 2023-07-27 08:42 | Outpatient (BNVA) | payer MEDICARE, SELFPAY | PROVIDERS: PCP Nurse Practitioner Family; Visit Provider Nurse Practitioner Family | DX: I10 Essential (primary) hypertension (principal); E11.9 Type 2 diabetes mellitus without complications | CPT/HCPCS: 80053; 80061; 83036 ==

== ENCOUNTER → 2023-10-27 08:45 | Outpatient (BNVA) | payer MEDICARE, SELFPAY | PROVIDERS: PCP Nurse Practitioner Family; Visit Provider Nurse Practitioner Family | DX: E11.9 Type 2 diabetes mellitus without complications (principal); I10 Essential (primary) hypertension | CPT/HCPCS: 80053; 83036 ==

== ENCOUNTER → 2023-11-25 10:18 | Outpatient (BNVA) | payer MEDICARE, SELFPAY | PROVIDERS: PCP Nurse Practitioner Family; Visit Provider Nurse Practitioner Family | DX: R91.1 Solitary pulmonary nodule (principal) | CPT/HCPCS: 80048; 85025 ==

== ENCOUNTER 2024-01-19 08:45 | Oncology outpatient (recurring) (ONCR) | payer MEDICARE, SELFPAY ==
[2024-01-19 10:21] LABS: Basophils # 0.1 10^3/uL (0.0-0.1); Basophils % 0.8 %; Eosinophils # 0.1 10^3/uL (0.0-0.8); Eosinophils % 1.2 %; Hematocrit 48.3 % (37-53); Lymphocytes # 2.2 10^3/uL (0.8-4.8); Lymphocytes % 21.8 %; Mean Corpuscular Hemoglobin 32.6 pg (27-33); Mean Corpuscular Volume 93.2 fl (82-101); Mean Platelet Volume 9.3 fL (7.4-10.4); Monocytes # 0.9 10^3/uL (0.2-0.9); Monocytes % 8.3 %; Neutrophils # 6.88 10^3/uL (1.8-7.7); Neutrophils % 67.5 %; Nucleated Red Blood Cells % 0 %; Platelet Count 226 10^3/cmm (157-399); Red Blood Count 5.18 10^6/uL (3.85-5.65); White Blood Count 10.19 10^3/uL (3.29-11.43)
[2024-01-19 10:39] LABS: Alanine Aminotransferase 32 U/L (0-41); Albumin Level 4.3 g/dL (3.5-5.2); Alkaline Phosphatase 113 U/L (40-130); Anion Gap 15.4 (5-19); Aspartate Amino Transferase 26 U/L (0-40); Blood Urea Nitrogen 13 mg/dL (8-23); Calcium 9.4 mg/dL (8.5-10.5); Carbon Dioxide 24 mmol/L (22-29); Chloride 106 mmol/L (98-107); Creatinine Clr Calc Pharmacy 84.9542; Globulin 2.6 g/dL (1.3-4.6); Glucose 92 mg/dL (65-115); Osmolality Calculated 292 mOsm/kg (285-295); Potassium 4.4 mmol/L (3.5-5.1); Sodium 141 mmol/L (136-145); Total Bilirubin 0.5 mg/dL (0.15-1.2); Total Protein 6.9 g/dL (6.6-8.7)
[2024-01-19 11:12] LABS: Hepatitis A Antibody IgM Non-Reactive (Nonreactive); Hepatitis B Core AB, Total Non-Reactive (Nonreactive); Hepatitis B Surface AB < 3.5 (11.5-1000); Hepatitis B Surface Antigen Non-Reactive (Nonreactive); Hepatitis C Virus Antibody Non-Reactive (Nonreactive)
--- NOTE | 2024-01-19 13:13 | N.ONRAD NP_ITS ---
Radiation Oncology New Patient Visit Patient: Bandar Vee MR#: [id number] : 7Age: 78 Sex: Male Dictated by: Dr. Samia Horner Date of Service: 01/19/2024 Referring Physician(s) : Paige Juarez Diagnosis: C67.5 - malignant neoplasm of bladder neck, Diagnosed 10/18/2015 (active), stage ii, t2, n0, m0. Radiotherapy to date: Summary > No prior radiation therapy. Chief Complaint / History of Present Illness: Patient is a 78-year-old gentleman who has a history of a bladder cancer which dates back to 2015. At that time he underwent neoadjuvant chemotherapy which she was only able to complete 3 cycles out of a planned 6 due to toxicity. He then had surgery and ileal conduit. 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 In 2020 he was found to have lung nodule. Believe this has been followed since then but most recently the 1 in the right upper lobe had increased in size and a biopsy was done on December 07, 2023 which showed it was consistent with his bladder cancer. He is scheduled for PET scan and had been planning on getting his treatments done at the [facility] in [place]. He elected to transfer care here to do his radiation treatments closer to home. He currently is asymptomatic and has an excellent performance score Current Medications: Amlodipine Besy-Benazepril HCl, aspirin, bactrim DS, cARBOplatin, compazine, compazine, dexamethasone Sodium Phosphate, emend, gabapentin, gemcitabine HCl, lantus, levofloxacin, lORazepam, neurontin, novoLOG, ondansetron HCl, ondansetron HCl, palonosetron HCl, pravastatin Sodium, prochlorperazine Maleate, tamsulosin HCl, vitamin D2. Allergies: Penicillamine. Medical History: Bladder Cancer, diabetes type I, dyslipidemia, peripheral neuropathy. No history of collagen vascular disease. No previous radiation therapy. Surgical History: Cataract excision in 2014, cholecystectomy in 2004, right eyelid repair in 2014 and right thumb repair in 2013. Family History: Father is at age 86 - heart failure. Mother is at age 74 - pancreatic cancer. Social History: Last screened on 11/26/2015 - Current every day smoker. Last screened on 11/19/2015 - Never drank. Patient indicated use of the following products: cigars. Current Complaints / Review of Systems: . Vital Signs: Performed on 01/19/2024 10:37 AM BMI - 25.827 kg/m2 (high), Height - 70 in, Weight - 180 lbs, Temperature - 98.7 f, Pulse - 67 /min, Respiration - 18 /min, O2 Sat - 95 % (low), Pain - 0, Fatigue - 0 and BP - 165/ 76 mm(hg)(high/). Physical Exam: General patient is in no apparent distress. He is by himself today. HEENT normocephalic atraumatic. Pupils are equal, sclera clear, extraocular muscles intact. He has noted to have poor dentition. Pulmonary: Respiratory rate is regular nonlabored Cardiovascular: Regular rate and rhythm Abdomen: Mildly protuberant and android pattern Extremities: Without clubbing cyanosis or edema Neurological: Alert and orient x 3. Gait and speech within normal limits Psych: Affect appropriate for current situation Performance Status: 100 Pathology: Primary, c67.5 - malignant neoplasm of bladder neck, Diagnosed 10/18/2015 (active) stage ii, t2, n0, m0. Lab: Imaging: See HPI Impression: Stage IV bladder cancer now 8 years from initial diagnosis Plan: I reviewed with him the plan that have been laid out by the physicians at . We discussed the simulation process. We reviewed the daily treatment regiment. We discussed the risks and side effects both acute and long-term. He will be getting scheduled for a PET scan here in the next 2 to 3 weeks and we will see him back right after that to begin the initial planning. Signed by: 01/19/2024 1:12:46 PM <<Signature on File>> Time spent with patient: 35 CPT Code: CPT Code:
[2024-01-22 14:29] LABS: Erythropoietin 13.3 mIU/mL (2.6-18.5)
== END 2024-01-19 23:59 | disposition home or self-care (01) ==
PROVIDERS: Internal Medicine; PCP Nurse Practitioner Family; Visit Provider Internal Medicine Medical Oncology
DX: Z11.59 Encounter for screening for other viral diseases; F17.290 Nicotine dependence, other tobacco product, uncomplicated; C78.01 Secondary malignant neoplasm of right lung; Z85.51 Personal history of malignant neoplasm of bladder; Z79.899 Other long term (current) drug therapy; Z90.6 Acquired absence of other parts of urinary tract
CPT/HCPCS: 36415; 80053; 82668; 85025; 86705; 86706; 86709; 86803; 87340; 99203; 99205

== ENCOUNTER 2024-02-10 12:42 | Oncology outpatient (recurring) (ONCR) | payer MEDICARE, SELFPAY ==
--- NOTE | 2024-01-26 08:30 | PETR_ITS ---
PROCEDURE INFORMATION: Exam: PET/CT Skull Base to Mid-thigh Exam date and time: 01/26/2024 9:52 AM Age: 78 years old Clinical indication: Condition or disease; Primary cancer: Malignant neoplasm of bladder neck; Additional info: Initial staging LABS AND CLINICAL REPORTS: Glucose: 108 mg/dl Treatment strategy for malignancy (PET staging): Initial Staging (PI) TECHNIQUE: Imaging protocol: Following at least four-hour fasting and following the injection of radiopharmaceutical, low dose CT images were obtained. Then, PET images were obtained. Attenuation corrected images were constructed using the CT scan. Fused images of PET and CT were reviewed. The standardized uptake values (SUV) reported below are maximum values within a region of interest, expressed in gm/ml. Exam includes orbital meatal line to mid-thigh. Radiopharmaceutical: 11.59 mCi F-18 FDG (Fluorodeoxyglucose), IV. Time of imaging post radiopharmaceutical administration: 1 hour Injection site: Left antecubital COMPARISON: CT chest wo con [id number] 12/07/2023 6:10 AM, CT chest, abdomen and pelvis 10/20/2023, CTA abdominal aorta with runoff 08/01/2019 FINDINGS: Brain: Visualized brain has normal physiologic uptake. Pharynx: No abnormal uptake. Larynx: No abnormal uptake. Lungs, pleura and trachea: A similar spiculated solid anterior right upper lobe noncalcified 1.3 x 0.7 cm nodule on series 3, image 80 is present, SUV max 2.9. Mild paraseptal emphysematous changes within the lungs are noted. A minimal number of peripheral noncalcified approximately 2 mm solid nodules in the lungs on series 3, images 75 and 77 in the right upper lobe and image 89 in the left upper lobe posteriorly have been stable since at least 10/20/2023. Heart: Normal physiologic uptake. Mediastinal space: No abnormal uptake. Liver: No abnormal uptake. Gallbladder and biliary ducts: No abnormal uptake. Cholecystectomy clips are present. Pancreas: No abnormal uptake. Spleen: No abnormal uptake. Calcified granulomas in the spleen are present. Adrenal glands: No abnormal uptake. Kidneys and ureters: Normal physiologic uptake. A non radiotracer avid rounded hypodense structure within the inferior pole of the left kidney likely represents a simple cyst measuring 1.7 cm on series 3, image 158. This was better characterized on the contrasted CT of 10/20/2023. Additional low-density structures in the kidneys noted on the CT of 10/20/2023 are not well delineated on the current noncontrast exam however no abnormal uptake in these regions appears to be present. Stomach and bowel: No abnormal uptake. Urinary bladder: There are postoperative changes of resection of the urinary bladder with neobladder formation. Reproductive: The prostate gland appears to been resected. No abnormal uptake. Vasculature: No abnormal uptake. There are diffuse atherosclerotic changes including within the coronary arteries. Lymph nodes: No abnormal uptake. No lymphadenopathy in the head, neck, chest, abdomen, pelvis, and extremities. Small benign-appearing non radiotracer avid left hilar and mediastinal calcified lymph nodes are present. Skeleton: No abnormal uptake in the visualized axial and appendicular skeleton. Degenerative changes in the spine are present. Soft tissues: Subcutaneous irregularly marginated patchy soft tissue density in the subcutaneous fat adjacent to the skin surface in the base of the neck/superior chest wall on the right is noted posteriorly on series 3, image 43 in a region measuring 3.8 x 2.3 cm is increased in prominence compared with 10/20/2023 and similar compared to this region which is partially imaged on the CT chest of 12/07/2023 without elevated uptake. A similar non radiotracer avid thin walled low-density structure in the subcutaneous fat of the posterosuperior left chest wall measures 4.0 x 2.6 cm on series 3, image 71 likely related to a sebaceous cyst. A non radiotracer avid soft tissue density nodule of the anterior chest wall adjacent to the skin surface on the left measures 1.7 x 1.1 cm on series 3, image 74 and is decreased in size and less cystic appearing compared with 12/07/2023 likely representing resolving benign cystic lesion. An ovoid region of subcutaneous soft tissue density involving the anterior left pelvis is noted from series 3, image 170 through image 205. This appears similar morphology compared with 10/20/2023, however it appears increased in size compared with 08/01/2019. For example, this region measures 4.3 cm medial to lateral by 2.2 cm anterior to posterior on the current PET CT series 3, image 195 compared with 3.5 x 1.7 cm on a similar image on the prior CT of 08/01/2019. The superior to inferior extent of this region measures approximately 11.4 cm (previously 10.3 cm). Mild uptake along the posteroinferior aspect of this region is noted, SUV max 3.0. METRICS: Mediastinal blood pool: SUV max 2.0 PET/PET skull to thigh INIT [id number] IMPRESSION: 1. A dominant solid right upper lobe spiculated nodule demonstrates mild uptake (SUV max 2.9) which is greater than mediastinal blood pool activity concerning for possible malignancy. 2. A minimal number of additional small solid nodules within both lungs are noted without elevated uptake. Evaluation of small nodules can be limited by PET-CT. 3. Postoperative changes of resection of the urinary bladder with neobladder formation are noted. 4. Increasing patchy subcutaneous irregular soft tissue density along the posterior right base of the neck/superior chest wall without elevated uptake suggestive of scarring. 5. A subcutaneous ovoid soft tissue density along the anterior left pelvis adjacent to the skin surface is similar compared with 10/20/2023 however is increased compared with 08/01/2019 and demonstrates mild uptake. Although this may represent an increasing region of inflammatory changes possibly related to scarring, a malignant etiology cannot be excluded. 6. Additional nonurgent findings as detailed above.
--- NOTE | 2024-01-28 12:51 | CT_ITS ---
WS: [id number] CT obtained for radiation therapy planning purposes.
--- NOTE | 2024-01-28 13:33 | ONCRAD EPV_ITS ---
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 This is a 70-year-old man with a history of superficial bladder cancer in . In August 2015 he presented with an acute gross hematuria, severe anemia with hemoglobin 6 g/dL requiring transfusions. He was transferred to [place], [place]. He underwent cystoscopy with TURBT on 09/06/[address] Beltre. Intraoperatively, the tumor involved prostatic urethra, entire bladder neck and an anterior dome of the bladder. 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 Lymphovascular invasion was present. His staging CT of the chest abdomen and pelvis on 09/07/2015 showed no evidence of distant metastatic disease and an enlarged prostate. There was nonspecific subcutaneous lesions in the left anterior chest and the left anterior abdominal wall. Off note, the patient has multiple sebaceous cysts in the skin, with some of them requiring resections in the past. The patient was further seen by Dr. Koehler, the urologist from [place]. His recommendations was to proceed with neoadjuvant chemotherapy followed by the radical cystectomy. The patient was first seen on 10/18/2015. Neoadjuvant chemotherapy with cisplatin and gemcitabine began on 10/22/2015. He was able to receive 2 weekly doses of gemcitabine. Day 15 of gemcitabine was held. His treatment was complicated with grade 4 neutropenia and thrombocytopenia without fevers. He had significant asthenia. He received prophylactic Levaquin therapy, complicated with a pain in the right Achilles tendon/ flare of plantar fasciitis and swelling in the right ankle. Ultrasound Doppler on 11/12/2015 was negative for thrombosis. The patient also developed acute renal failure with cisplatin therapy, creatinine increased to 1.6 mg/dL, resolved with hydration. Because of the renal failure, his further treatment changed to carboplatin and gemcitabine, cycle 2 on 11/19/15. INTERIM HISTORY: Mr. Vee is here today for followup. He is due for day 15 gemcitabine. He states he has felt really washed out and tired the last 3-4 days. He denies an fever, chills or signs of infection. He denies diarrhea. He is eating pretty good . he denies any neuropathy at this time. He is scheduled to see his urologist in [place] on 12/11/2015. He still continues to have occasional urinary bleeding, but not severe. He denies cough or hemoptysis or wheezing. He has no chest pain. He has occasional constipation. He has chronic arthralgias. The patient has insulin-dependent diabetes mellitus, baseline prechemotherapy hemoglobin A1c 8.9. 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 TODAY 01/28/2024-this is a pleasant 78-year-old male with asymptomatic RUL nodule measuring 1.3 x 0.7 cm (2.9). It was biopsy-proven to be transitional cell carcinoma in the bladder. Patient is here to discuss PET scan results as it relates to the RUL nodule. Questions answered from patient and his daughter. Radiotherapy to Date: None Current History: As noted above Current Medications: Amlodipine Besy-Benazepril HCl, aspirin, bactrim DS, cARBOplatin, compazine, compazine, dexamethasone Sodium Phosphate, emend, gabapentin, gemcitabine HCl, lantus, levofloxacin, lORazepam, neurontin, novoLOG, ondansetron HCl, ondansetron HCl, palonosetron HCl, pravastatin Sodium, prochlorperazine Maleate, tamsulosin HCl, vitamin D2. Allergies: Penicillamine. Current Complaints / Review of Systems: . As noted above Physical Exam: General: Alert and oriented x 3. No acute distress. HEENT: Normocephalic, atraumatic. Extraocular Movements Intact: Pupils Equal, Round, Reactive to Light and Accommodation: Sclerae anicteric. Oral cavity is clear without lesions, masses or ulcers. NECK: Supple without supraclavicular or jugular lymphadenopathy. LUNGS: Clear to auscultation bilaterally without rales, rhonchi or wheeze. HEART: Regular rate and rhythm, normal S1 and S2 without murmur, gallop or rub. MUSCULOSKELETAL: No tenderness or percussion pain over the axial skeleton, scapulae or pelvis. ABDOMEN: Soft, nontender, nondistended without masses or organomegaly. Bowell sounds are present. Right-sided ileal conduit EXTREMITIES: No peripheral edema is identified. Limited motor and sensory examination are grossly intact and symmetric bilaterally. NEUROLOGIC: Cranial nerves II ???XII are grossly intact. Normal sensation, strength 5/5 in all extremities, normal gait, no ataxia. Performance Status: KPS 90 Lab: None pending. Pathology: Primary, c78.01 - secondary malignant neoplasm of right lung, Diagnosed 01/19/2024 (active) and Primary, c67.5 - malignant neoplasm of bladder neck, Diagnosed 10/18/2015 (active) stage ii, t2, n0, m0. Imaging: See HPI PET/CT 01/26/2024 showed a 1.3 x 1 0.7 cm nodule RUL (2.9). There is an ovoid region of subcu soft tissue density involving the anterior left pelvis. Patient has history of fatty tumors in the past. It measures 4.3 x 2.2 cm anterior to posterior compared to 3.5 x 1.7 cm in July 2019. Also a 11.4 mass that was previously 10.3 cm (3.0). This may reflect ileoconduit contents but Dr. Marsh evaluated as needed. MRI BRAIN is scheduled for 02/29/2024 at 1300 hrs. He does have metal in his right thumb and left leg and he will stop by the department today to evaluate if he can have the MRI. Impression: TCC RUL 1.3 x 0.7 cm PLAN: Options regarding the treatment of this RUL nodule were discussed in detail with the patient and daughter. Questions answered to their satisfaction Patient desired SBRT to this area. Consent signed this date under his own free will. 4D CT SIM was performed today. PET fusion anticipated. Plan is to treat to 5 fractions to a total dose of 5000 cGy in every other day fashion. Signed by: 01/28/2024 1:31:35 PM <<Signature on File>> Time spent with patient: CPT Code: CPT Code:
== END 2024-02-10 23:59 | disposition home or self-care (01) ==
PROVIDERS: PCP Nurse Practitioner Family; Visit Provider Internal Medicine Medical Oncology
DX: C67.5 Malignant neoplasm of bladder neck (principal); Z51.0 Encounter for antineoplastic radiation therapy
CPT/HCPCS: 77300; 77301; 77334; 77338; 77373; 77470; 78815; 99024; 99214; A9552

== ENCOUNTER 2024-02-16 12:40 | Oncology outpatient (recurring) (ONCR) | payer MEDICARE, SELFPAY | END 2024-02-17 23:59 | disposition home or self-care (01) | PROVIDERS: PCP Nurse Practitioner Family; Visit Provider Internal Medicine Medical Oncology | DX: C67.5 Malignant neoplasm of bladder neck (principal); Z51.0 Encounter for antineoplastic radiation therapy | CPT/HCPCS: 77373 ==

== ENCOUNTER → 2024-02-24 14:40 | Outpatient (BNVA) | payer MEDICARE, SELFPAY | PROVIDERS: PCP Nurse Practitioner Family; Visit Provider Internal Medicine | DX: E11.51 Type 2 diabetes mellitus with diabetic peripheral angiopathy without gangrene (principal); I10 Essential (primary) hypertension; E78.49 Other hyperlipidemia; Z72.0 Tobacco use; Z79.4 Long term (current) use of insulin | CPT/HCPCS: 99214 ==

== ENCOUNTER 2024-03-23 06:00 | Oncology outpatient (recurring) (ONCR) | payer MEDICARE, SELFPAY | END 2024-04-18 23:59 | disposition home or self-care (01) | PROVIDERS: PCP Nurse Practitioner Family; Visit Provider Radiology Radiation Oncology | DX: C78.01 Secondary malignant neoplasm of right lung (principal); C67.5 Malignant neoplasm of bladder neck; Z92.3 Personal history of irradiation | CPT/HCPCS: 99024 ==

== ENCOUNTER 2024-03-23 12:45 | Oncology outpatient (recurring) (ONCR) | payer MEDICARE, SELFPAY ==
--- NOTE | 2024-02-18 14:11 | N.ONRD TS_ITS ---
Radiation Oncology OTV/ Treatment Summary Patient: Bandar Vee MR#: [id number] : 1945 Age: 78 Sex: Male Dictated by: Dr. Samia Horner Date of Service: 02/18/2024 Referring Physician(s) : Paige Juarez Diagnosis: C78.01 - Secondary malignant neoplasm of right lung, Diagnosed 01/19/2024 (Active) C67.5 - Malignant neoplasm of bladder neck, Diagnosed 10/18/2015 (Active) Stage II, T2, N0, M0 Radiotherapy to Date: Course: RUL SBRT 2023, Treatment Site: RUL SBRT 2023, Ref. ID: [id number], Energy: 6X, Dose/Fx (cGy): 1,000, #Fx: 5 / 5, Dose Correction (cGy): 0, Total Dose Delivered (cGy): 5,000, Start Date: 02/09/2024, End Date: 02/18/2024, Elapsed Days: 9 Clinical Summary: The patient tolerated RT well. He essentially had no issues with the treatment. He continues to deal with lifelong cyst formation and has 1 on his back that had ruptured during one of his treatments. Vital Signs: Performed on 02/18/2024 12:57 PM BMI - 25.627 kg/m2 (high), Height - 70 in, Weight - 178.6 lbs, Temperature - 97.5 f, Pulse - 77 /min, Respiration - 16 /min, O2 Sat - 97 %, Pain - 0, Fatigue - 0 and BP - 161/ 76 mm(hg)(high/). Plan: End of treatment today. Continue on the above medication until the skin reaction resolves. Follow up in one month. Scheduled to see Dr. Sutherland next week. Signed by: Dr. Samia Horner>02/18/2024 2:10:40 PM <<Signature on File>>
--- NOTE | 2024-03-23 13:19 | ONCRAD EPV_ITS ---
Radiation Oncology Established Patient Visit Patient: Bandar Vee [id number] : 1945 Age: 78 Sex: Male Dictated by: Dr. 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 He is feeling well. He denies any difficulty breathing. He has had no changes in appetite. His energy level is good.. This is a 70-year-old man with a history of superficial bladder cancer in . In August 2015 he presented with an acute gross hematuria, severe anemia with hemoglobin 6 g/dL requiring transfusions. He was transferred to [place], [place]. He underwent cystoscopy with TURBT on 09/06/[address] Beltre. Intraoperatively, the tumor involved prostatic urethra, entire bladder neck and an anterior dome of the bladder. 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 Lymphovascular invasion was present. His staging CT of the chest abdomen and pelvis on 09/07/2015 showed no evidence of distant metastatic disease and an enlarged prostate. There was nonspecific subcutaneous lesions in the left anterior chest and the left anterior abdominal wall. Off note, the patient has multiple sebaceous cysts in the skin, with some of them requiring resections in the past. The patient was further seen by Dr. Koehler, the urologist from [place]. His recommendations was to proceed with neoadjuvant chemotherapy followed by the radical cystectomy. The patient was first seen on 10/18/2015. Neoadjuvant chemotherapy with cisplatin and gemcitabine began on 10/22/2015. He was able to receive 2 weekly doses of gemcitabine. Day 15 of gemcitabine was held. His treatment was complicated with grade 4 neutropenia and thrombocytopenia without fevers. He had significant asthenia. He received prophylactic Levaquin therapy, complicated with a pain in the right Achilles tendon/ flare of plantar fasciitis and swelling in the right ankle. Ultrasound Doppler on 11/12/2015 was negative for thrombosis. The patient also developed acute renal failure with cisplatin therapy, creatinine increased to 1.6 mg/dL, resolved with hydration. Because of the renal failure, his further treatment changed to carboplatin and gemcitabine, cycle 2 on 11/19/15. He still continues to have occasional urinary bleeding, but not severe. He denies cough or hemoptysis or wheezing. He has no chest pain. He has occasional constipation. He has chronic arthralgias. The patient has insulin-dependent diabetes mellitus, baseline prechemotherapy hemoglobin A1c 8.9. 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 Radiotherapy to Date: Course: RU SBRT 2023, Treatment Site: RU SBRT 2023, Ref. ID: [id number], Energy: 6X, Dose/Fx (cGy): 1,000, #Fx: 5 / 5, Dose Correction (cGy): 0, Total Dose Delivered (cGy): 5,000, Start Date: 02/09/2024, End Date: 02/18/2024, Elapsed Days: 9 Current History: Current Medications: Amlodipine Besy-Benazepril HCl, aspirin, bactrim DS, cARBOplatin, compazine, compazine, dexamethasone Sodium Phosphate, emend, gabapentin, gemcitabine HCl, lantus, levofloxacin, lORazepam, neurontin, novoLOG, ondansetron HCl, ondansetron HCl, palonosetron HCl, pravastatin Sodium, prochlorperazine Maleate, tamsulosin HCl, vitamin D2. Allergies: Penicillamine. Current Complaints / Review of Systems: . Vital Signs: Performed on 03/23/2024 12:58 PM BMI - 25.311 kg/m2 (high), Height - 70 in, Weight - 176.4 lbs, Temperature - 98.6 f, Pulse - 75 /min, Respiration - 18 /min, O2 Sat - 96 %, Pain - 0, Fatigue - 0 and BP - 160/ 80 mm(hg)(high/). Physical Exam: General: Alert and oriented x 3. No acute distress. HEENT: Normocephalic, atraumatic. Extraocular Movements Intact: Pupils Equal, Round, Reactive to Light: Sclerae anicteric. . LUNGS: Clear to auscultation. HEART: Regular rate and rhythm NEUROLOGIC: Alert and orient x 3. Gait and speech within normal limits. Performance Status: 100 Lab: None pending. Pathology: Primary, c78.01 - secondary malignant neoplasm of right lung, Diagnosed 01/19/2024 (active) and Primary, c67.5 - malignant neoplasm of bladder neck, Diagnosed 10/18/2015 (active) stage ii, t2, n0, m0. Imaging: See HPI Impression: Stage IV carcinoma of the bladder status post SBRT of the solitary lung lesion Plan: At this point he is recovered nicely from the treatments. He had no ill effects. Will set up a plan for him to have a PET scan in 2 months. After that he will have a CT chest scan every 6 months. We did go over things to watch for in terms of signs and symptoms with metastatic disease. He knows to call if he should have any changes in his overall health or notices a new ache or pain. Signed by: 03/23/2024 1:17:28 PM <<Signature on File>> Time spent with patient: 20 CPT Code: CPT Code:
== END 2024-03-23 23:59 | disposition home or self-care (01) ==
PROVIDERS: PCP Nurse Practitioner Family; Visit Provider Radiology Radiation Oncology
DX: Z53.9 Procedure and treatment not carried out, unspecified reason (principal)
CPT/HCPCS: 77336; 77373; 99024; 99214

== ENCOUNTER 2024-05-13 11:47 | Outpatient (CLI) | payer MEDICARE, SELFPAY ==
--- NOTE | 2024-05-13 12:00 | PETR_ITS ---
PROCEDURE INFORMATION: Exam: PET/CT Skull Base to Mid-thigh Exam date and time: 05/13/2024 12:49 PM Age: 79 years old Clinical indication: Condition or disease; Follow-up oncological assessment; Patient HX: Bladder cancer with lung mets; Additional info: Lung metastasis LABS AND CLINICAL REPORTS: Glucose: 106 mg/dl Treatment strategy for malignancy (PET staging): Restaging (PS) TECHNIQUE: Imaging protocol: Following at least four-hour fasting and following the injection of radiopharmaceutical, low dose CT images were obtained. Then, PET images were obtained. Attenuation corrected images were constructed using the CT scan. Fused images of PET and CT were reviewed. The standardized uptake values (SUV) reported below are maximum values within a region of interest, expressed in gm/ml. Exam includes orbital meatal line to mid-thigh. Radiopharmaceutical: 10.61 mCi F-18 FDG (Fluorodeoxyglucose), IV. Time of imaging post radiopharmaceutical administration: 1 hour Injection site: left ac COMPARISON: PT PET skull to thigh INIT [id number] 01/26/2024 9:52 AM FINDINGS: Brain: Visualized brain has normal physiologic uptake. Pharynx: No abnormal uptake. Larynx: No abnormal uptake. Lungs, pleura and trachea: No abnormal uptake. Right upper lobe irregular shaped nodule representing known lung metastasis decreased from 1.1 x 0.8 cm/2.9 SUV to 1x 0.6 cm/1.1 SUV in keeping with response to treatment. No new or progressive lung nodules. Stable calcified granuloma in the left lower lobe. No pleural effusion. Heart: Normal physiologic uptake. There is no cardiomegaly. Coronary artery calcification is present. There is no pericardial effusion. Mediastinal space: No abnormal uptake. There is a small hiatal hernia. Liver: No abnormal uptake. Gallbladder and biliary ducts: No abnormal uptake. Status post cholecystectomy. No biliary dilatation. Pancreas: No abnormal uptake. Spleen: No abnormal uptake. The spleen is normal in size with multiple small calcified granulomas. Adrenal glands: No abnormal uptake. Kidneys and ureters: Normal physiologic uptake. No hydronephrosis. Stomach and bowel: No abnormal uptake. Intraperitoneal and retroperitoneal spaces: No abnormal uptake. No ascites. Urinary bladder: Absent. Status post radical prostatectomy with ileal conduit urinary diversion. Reproductive: No abnormal uptake. See above in urinary bladder . Vasculature: No abnormal uptake. No aortic aneurysm. Lymph nodes: Subcentimeter nodule in the right parotid gland (series 301, image 47) with slightly increased uptake of 3.8 SUV new since prior exam possibly represents a small intraparotid lymph node rather than primary parotid neoplasm. No FDG avid lymphadenopathy in the chest, abdomen, pelvis, and extremities. Stable sequela of exposure to granulomatous disease with calcified left subcarinal and left hilar lymph nodes. Skeleton: No abnormal uptake in the visualized axial and appendicular skeleton. Soft tissues: Linear subcutaneous FDG avid focus measuring 13 SUV in the left upper back in place of previously present subcutaneous cyst is suggestive of benign inflammatory finding after cyst drainage. Sub cm elongated nodule in the subcutaneous fat of the left upper back on series 301, image 90 measuring 4.1 SUV new since prior exam is of indeterminate etiology and clinical significance. There are stable non FDG avid subcutaneous sharply-circumscribed irregular shaped small soft tissue density at the midline in the upper back and in the right posterior lower neck suggestive of benign scarring. PET/PET skull to thigh SUBS [id number] IMPRESSION: 1. The right upper lobe lung nodule representing known lung metastases decreased in size and in uptake in keeping with complete metabolic response to treatment. 2. New linear FDG avid focus in place of drained subcutaneous cyst in the left upper back suggestive of benign inflammatory finding. Two new subcentimeter FDG avid foci (right intraparotid nodule measuring 3.8 SUV, and subcutaneous nodule in the left upper back measuring 4.1 SUV) are not entirely specific, probably benign. No other FDG avid findings concerning for malignancy.
== END 2024-05-13 11:48 | disposition home or self-care (01) ==
LOC: RAD 11:49
PROVIDERS: PCP Nurse Practitioner Family; Visit Provider Radiology Radiation Oncology
DX: C67.9 Malignant neoplasm of bladder, unspecified (principal); C78.00 Secondary malignant neoplasm of unspecified lung; Z85.118 Personal history of other malignant neoplasm of bronchus and lung; Z85.51 Personal history of malignant neoplasm of bladder; J98.4 Other disorders of lung; K11.8 Other diseases of salivary glands; Z90.6 Acquired absence of other parts of urinary tract; Z98.890 Other specified postprocedural states; Z90.49 Acquired absence of other specified parts of digestive tract; D73.89 Other diseases of spleen
CPT/HCPCS: 78815; A9552

== ENCOUNTER → 2024-05-17 10:50 | Outpatient (BNVA) | payer MEDICARE, SELFPAY | PROVIDERS: PCP Nurse Practitioner Family; Visit Provider Nurse Practitioner Family | DX: I70.209 Unspecified atherosclerosis of native arteries of extremities, unspecified extremity (principal); E11.51 Type 2 diabetes mellitus with diabetic peripheral angiopathy without gangrene; I10 Essential (primary) hypertension; R53.83 Other fatigue | CPT/HCPCS: 80053; 83036; 85025 ==

== ENCOUNTER 2024-05-18 13:28 | Oncology outpatient (recurring) (ONCR) | payer MEDICARE, SELFPAY ==
--- NOTE | 2024-05-18 14:54 | ONCRAD EPV_ITS ---
Radiation Oncology Established Patient Visit Patient: Bandar Vee [id number] : 1945 Age: 79 Sex: Male Dictated by: Dr. 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 ID: [id number], Energy: 6X, Dose/Fx (cGy): 1,000, #Fx: 5 / 5, Dose Correction (cGy): 0, Total Dose Delivered (cGy): 5,000, Start Date: 02/09/2024, End Date: 02/18/2024, Elapsed Days: 9 Current History: He is doing well. He has no sxs. He had transient fatigue while on treatment. He Sees his urologist 1 time a year in follow-up for his resected bladder carcinoma. He has had many subcutaneous cysts x 60 years and these require occasional incision and drainage. He continues to smoke 10 cigars a day. PET/CT revealed complete resolution of the anterior RUL nodule previously seen on PET/CT from 01/26/2024. Some fog of a post treatment infiltrate is seen. Uptake seen in a left upper back subcutaneous region is seen c/w drained cutaneous cyst. Functioning ileostomy seen in RLQ of abdomen. No disease seen elsewhere Current Medications: Amlodipine Besy-Benazepril HCl, aspirin, bactrim DS, cARBOplatin, compazine, compazine, dexamethasone Sodium Phosphate, emend, gabapentin, gemcitabine HCl, lantus, levofloxacin, lORazepam, neurontin, novoLOG, ondansetron HCl, ondansetron HCl, palonosetron HCl, pravastatin Sodium, prochlorperazine Maleate, tamsulosin HCl, vitamin D2. Allergies: Penicillamine. Current Complaints / Review of Systems: . Vital Signs: Performed on 05/18/2024 1:57 PM BMI - 25.942 kg/m2 (high), Height - 70 in, Weight - 180.8 lbs, Temperature - 98.3 f, Pulse - 71 /min, Respiration - 18 /min, O2 Sat - 97 %, Pain - 0, Fatigue - 0 and BP - 166/ 73 mm(hg)(high/). Physical Exam: General: Alert and oriented x 3. No acute distress. No palpable supraclavicular adenopathy. Poor dentition . Ileostomy in RLQ. No pedal edema Performance Status: ECOG 0 Lab: None pending. Pathology: Primary, c78.01 - secondary malignant neoplasm of right lung, Diagnosed 01/19/2024 (active) and Primary, c67.5 - malignant neoplasm of bladder neck, Diagnosed 10/18/2015 (active) stage ii, t2, n0, m0. Imaging: See HPI Impression: RUL metastatic nodule s/p 50 Gy SBRT completed 02/2024. Now with a complete response with no progression elsewhere. Will have him return in 6 month with surveillance chest CT. Signed by: 05/18/2024 2:52:48 PM <<Signature on File>> Time spent with patient: CPT Code: CPT Code:
== END 2024-05-19 23:59 | disposition home or self-care (01) ==
PROVIDERS: PCP Nurse Practitioner Family; Visit Provider Radiology Radiation Oncology
DX: C78.01 Secondary malignant neoplasm of right lung (principal); C67.5 Malignant neoplasm of bladder neck; Z92.3 Personal history of irradiation
CPT/HCPCS: 99024

== ENCOUNTER → 2024-08-09 11:19 | Outpatient (BNVA) | payer MEDICARE, SELFPAY | PROVIDERS: PCP Nurse Practitioner Family; Visit Provider Nurse Practitioner Family | DX: I10 Essential (primary) hypertension (principal); E11.51 Type 2 diabetes mellitus with diabetic peripheral angiopathy without gangrene; I70.209 Unspecified atherosclerosis of native arteries of extremities, unspecified extremity; R53.83 Other fatigue | CPT/HCPCS: 80053; 80061; 83036; 85025 ==

== ENCOUNTER → 2024-11-08 09:15 | Outpatient (BNVA) | payer MEDICARE, SELFPAY | PROVIDERS: PCP Nurse Practitioner Family; Visit Provider Nurse Practitioner Family | DX: I10 Essential (primary) hypertension (principal); E11.51 Type 2 diabetes mellitus with diabetic peripheral angiopathy without gangrene; I70.209 Unspecified atherosclerosis of native arteries of extremities, unspecified extremity | CPT/HCPCS: 80053; 83036 ==

== ENCOUNTER 2024-11-16 12:32 | Oncology outpatient (recurring) (ONCR) | payer MEDICARE, SELFPAY ==
--- NOTE | 2024-11-03 10:00 | CT_ITS ---
WS: [id number] CT chest wo con [id number] HISTORY: Solitary right lung nodule s/p SBRT TECHNIQUE: Axial imaging performed through the thorax. Coronal and sagittal reformats are submitted. All CT scans at [facility] use at least one of these dose optimization techniques: automated exposure control; mA and/or kV adjustment per patient size (includes targeted exams where dose is matched to clinical indication); or iterative reconstruction. CONTRAST: None DLP: 475.65 mGy.cm COMPARISON: PET/CT 05/13/2024, chest CT 12/07/2023 Lungs and central airway: Nodule in the anterior RIGHT upper lobe which has undergone SBRT significantly decreased and nearly completely resolved. There is a small amount of interstitial thickening and linear opacification at the site now. Consistent with satisfactory response of treatment. There is a 2 mm nodule also noted in the periphery of the RIGHT upper lobe which is stable. Lungs are hyperexpanded. No new pulmonary mass or nodule. Benign granuloma LEFT lower lobe. Pleura: Normal. No pleural effusion. Heart and pericardium: Normal size heart with no pericardial effusion. Mediastinum and britney: No mediastinum or hilar adenopathy. Vessels: Mild atherosclerosis aorta. Chest wall and lower neck: Superficial soft tissue nodule in the LEFT anterior thorax measuring 1.4 cm. Similar to 12/07/2023. This is most likely a sebaceous cyst. Upper abdomen: Prior cholecystectomy. Granuloma within the spleen. LEFT adrenal 11 mm nodule with low Hounsfield units consistent with an adenoma. Osseous structures: Mild increase in thoracic kyphosis. CT/CT chest wo con [id number] IMPRESSION: 1. Satisfactory response status post SBRT RIGHT upper lobe nodule. The nodule as essentially resolved. Adjacent linear areas of scarring now present in the b ed of the previously described nodule. No new pulmonary mass or nodule. 2. Prior cholecystectomy. 3. No adenopathy.
--- NOTE | 2024-11-16 13:40 | ONCRAD EPV_ITS ---
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 This is a 70-year-old man with a history of superficial bladder cancer in . In August 2015 he presented with an acute gross hematuria, severe anemia with hemoglobin 6 g/dL requiring transfusions. He was transferred to [place], [place]. He underwent cystoscopy with TURBT on 09/06/[address] Beltre. Intraoperatively, the tumor involved prostatic urethra, entire bladder neck and an anterior dome of the bladder. 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 Lymphovascular invasion was present. His staging CT of the chest abdomen and pelvis on 09/07/2015 showed no evidence of distant metastatic disease and an enlarged prostate. There was nonspecific subcutaneous lesions in the left anterior chest and the left anterior abdominal wall. Off note, the patient has multiple sebaceous cysts in the skin, with some of them requiring resections in the past. The patient was further seen by Dr. Koehler, the urologist from [place]. His recommendations was to proceed with neoadjuvant chemotherapy followed by the radical cystectomy. The patient was first seen on 10/18/2015. Neoadjuvant chemotherapy with cisplatin and gemcitabine began on 10/22/2015. He was able to receive 2 weekly doses of gemcitabine. Day 15 of gemcitabine was held. His treatment was complicated with grade 4 neutropenia and thrombocytopenia without fevers. He had significant asthenia. He received prophylactic Levaquin therapy, complicated with a pain in the right Achilles tendon/ flare of plantar fasciitis and swelling in the right ankle. Ultrasound Doppler on 11/12/2015 was negative for thrombosis. The patient also developed acute renal failure with cisplatin therapy, creatinine increased to 1.6 mg/dL, resolved with hydration. Because of the renal failure, his further treatment changed to carboplatin and gemcitabine, cycle 2 on 11/19/15. INTERIM HISTORY: Mr. Vee is here today for followup. He is due for day 15 gemcitabine. He states he has felt really washed out and tired the last 3-4 days. He denies an fever, chills or signs of infection. He denies diarrhea. He is eating pretty good . he denies any neuropathy at this time. He is scheduled to see his urologist in [place] on 12/11/2015. He still continues to have occasional urinary bleeding, but not severe. He denies cough or hemoptysis or wheezing. He has no chest pain. He has occasional constipation. He has chronic arthralgias. The patient has insulin-dependent diabetes mellitus, baseline prechemotherapy hemoglobin A1c 8.9. 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 Radiotherapy to Date: Course: RUL SBRT 2023, Treatment Site: RUL SBRT 2023, Ref. ID: [id number], Energy: 6X, Dose/Fx (cGy): 1,000, #Fx: 5 / 5, Dose Correction (cGy): 0, Total Dose Delivered (cGy): 5,000, Start Date: 02/09/2024, End Date: 02/18/2024, Elapsed Days: 9 Current History: This is a pleasant 79-year-old male who is 9 months s/p SBRT to the RUL nodule. It was originally 1.[address] Chest on 11/03/2024 (comparison 05/13/2024 PET/CT and Chest CT 12/07/2023) noted complete response RUL nodule no new pulmonary masses or nodules. No adenopathy appreciated. Patient denies any increase in shortness of breath, hemoptysis or rib pain. Current Medications: Amlodipine Besy-Benazepril HCl, aspirin, bactrim DS, cARBOplatin, compazine, compazine, dexamethasone Sodium Phosphate, emend, gabapentin, gemcitabine HCl, lantus, levofloxacin, lORazepam, neurontin, novoLOG, ondansetron HCl, ondansetron HCl, palonosetron HCl, pravastatin Sodium, prochlorperazine Maleate, tamsulosin HCl, vitamin D2. Allergies: Penicillamine. Current Complaints / Review of Systems: . Vital Signs: Performed on 11/16/2024 12:46 PM BMI - 4.671 kg/m2 (low), Height - 170 in, Weight - 192 lbs, Temperature - 97.2 f, Pulse - 79 /min, Respiration - 18 /min, O2 Sat - 97 %, Pain - 0, Fatigue - 0 and BP - 175/ 79 mm(hg)(high/). Physical Exam: General: Alert and oriented x 3. No acute distress. HEENT: Normocephalic, atraumatic. Extraocular Movements Intact: Pupils Equal, Round, Reactive to Light and Accommodation: Sclerae anicteric. Oral cavity is clear without lesions, masses or ulcers. NECK: Supple without supraclavicular or jugular lymphadenopathy. LUNGS: Clear to auscultation bilaterally without rales, rhonchi or wheeze. HEART: Regular rate and rhythm, normal S1 and S2 without murmur, gallop or rub. MUSCULOSKELETAL: No tenderness or percussion pain over the axial skeleton, scapulae or pelvis. ABDOMEN: Soft, nontender, nondistended without masses or organomegaly. Bowell sounds are present. EXTREMITIES: No peripheral edema is identified. Limited motor and sensory examination are grossly intact and symmetric bilaterally. NEUROLOGIC: Cranial nerves II ???XII are grossly intact. Normal sensation, strength 5/5 in all extremities, normal gait, no ataxia. Performance Status: Lab: None pending. Pathology: Primary, c78.01 - secondary malignant neoplasm of right lung, Diagnosed 01/19/2024 (active) and Primary, c67.5 - malignant neoplasm of bladder neck, Diagnosed 10/18/2015 (active) stage ii, t2, n0, m0. Imaging: See HPI Impression: NSCLC RUL 1.2 x 0.9cm, CR S/P SBRT 02/18/2024 PLAN: RTC 6 MON[address] Surve[address] Chest CC Rocco Koehler MD, [address] [place] [id number], Signed by: 11/16/2024 1:38:14 PM <<Signature on File>> Time spent with patient: 30 minutes CPT Code: CPT Code:
== END 2024-11-16 23:59 | disposition home or self-care (01) ==
PROVIDERS: PCP Nurse Practitioner Family; Visit Provider Radiology Radiation Oncology
DX: Z08 Encounter for follow-up examination after completed treatment for malignant neoplasm (principal); Z85.118 Personal history of other malignant neoplasm of bronchus and lung; Z85.51 Personal history of malignant neoplasm of bladder
CPT/HCPCS: 71250; 99213

== ENCOUNTER → 2024-11-23 14:27 | Outpatient (BNVA) | payer MEDICARE, SELFPAY | PROVIDERS: PCP Nurse Practitioner Family; Visit Provider Internal Medicine | DX: I73.9 Peripheral vascular disease, unspecified (principal); I10 Essential (primary) hypertension; M79.606 Pain in leg, unspecified; E78.49 Other hyperlipidemia; E11.51 Type 2 diabetes mellitus with diabetic peripheral angiopathy without gangrene; I70.209 Unspecified atherosclerosis of native arteries of extremities, unspecified extremity; Z79.4 Long term (current) use of insulin | CPT/HCPCS: 99214 ==

== ENCOUNTER → 2025-04-11 15:36 | Outpatient (BNVA) | payer MEDICARE, SELFPAY | PROVIDERS: PCP Nurse Practitioner Family; Visit Provider Nurse Practitioner Family | DX: M54.9 Dorsalgia, unspecified (principal); I10 Essential (primary) hypertension; I70.209 Unspecified atherosclerosis of native arteries of extremities, unspecified extremity; E11.51 Type 2 diabetes mellitus with diabetic peripheral angiopathy without gangrene; R53.83 Other fatigue | CPT/HCPCS: 80053; 80061; 81000; 83036; 85025; 87086 ==

== ENCOUNTER → 2025-04-19 10:03 | Outpatient (BNVA) | payer MEDICARE, SELFPAY | PROVIDERS: PCP Nurse Practitioner Family; Visit Provider Nurse Practitioner Family | DX: R10.9 Unspecified abdominal pain (principal) | CPT/HCPCS: 85025 ==

== ENCOUNTER 2025-04-20 11:45 | Outpatient (CLI) | payer MEDICARE, SELFPAY ==
[2025-04-20] MEDS: iohexol 350 mg/mL 500 mL Btl (per mL) PO (13:10)
[2025-04-20] MEDS: iohexol 350 mg/mL 500 mL Btl (per mL) IV (13:10)
--- NOTE | 2025-04-20 13:15 | CTR_ITS ---
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 Radiation optimization: All CT scans at this facility use at least one of these dose optimization techniques: automated exposure control; mA and/or kV adjustment per patient size (includes targeted exams where dose is matched to clinical indication); or iterative reconstruction. Contrast material: OMNI 350; Contrast volume: 100 ml; Contrast route: INTRAVENOUS (IV); COMPARISON: CT [facility] [id number] 11/03/2024 9:46 AM RADIATION DOSE METRICS: Total DLP (mGy-cm): 976.8 FINDINGS: Lungs: A few 3 mm and smaller solid noncalcified nodules in both lungs are unchanged. The largest is in the superior segment left lower lobe. Small amounts of scattered pulmonary scarring are unchanged. Unchanged calcified granuloma left lung base. Otherwise, unremarkable. Pleural spaces: Unremarkable. No pneumothorax. No pleural effusion. Heart: Unremarkable. No cardiomegaly. No pericardial effusion. Coronary arteries: Unchanged large amount of coronary artery calcification. Lymph nodes: Unremarkable. No enlarged lymph nodes. Vasculature: Unremarkable. No aortic aneurysm. Bones/joints: Unchanged mild thoracic scoliosis and kyphosis. Unchanged mild multilevel spondylosis. Otherwise, unremarkable. Soft tissues: Unchanged 1.4 cm subcutaneous nodule anterior left chest wall. Unchanged similar subcutaneous nodule posterior left chest wall. Otherwise, unremarkable visualized body wall. Otherwise, unremarkable soft tissues. CT Chest at 12 months. (Reference: Nela) 3. No other acute thoracic findings. 4. Additional details as above. Unchanged. REFERENCES: Nela Hartmann, et al. Guidelines for Management of Incidental Pulmonary Nodules Detected on CT Images: From the Fleischner Society 2017. Radiology. 2017;284(1):228-243. 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 Radiation optimization: All CT scans at this facility use at least one of these dose optimization techniques: automated exposure control; mA and/or kV adjustment per patient size (includes targeted exams where dose is matched to clinical indication); or iterative reconstruction. Contrast material: OMNI 350; Contrast volume: 100 ml; Contrast route: INTRAVENOUS (IV); COMPARISON: PT PET skull to thigh SUBS [id number] 05/13/2024 12:49 PM RADIATION DOSE METRICS: Total DLP (mGy-cm): 976.8 FINDINGS: Lungs: See above report. Liver: Normal. No mass. Gallbladder and biliary ducts: Unchanged cholecystectomy. Unremarkable bile ducts. Pancreas: Normal. No ductal dilation. Spleen: Normal. No splenomegaly. Adrenal glands: Unchanged slightly lobulated left adrenal gland. Otherwise, unremarkable. Kidneys and ureters: A few unchanged small renal cysts need no follow-up. Otherwise, unremarkable. Stomach and bowel: Otherwise, unremarkable. Appendix: No evidence of appendicitis. Intraperitoneal space: Small amount of free fluid in the pelvis. No other free intraperitoneal fluid. No free air. Vasculature: Unchanged moderate amount of arterial plaque. Otherwise, unremarkable. Lymph nodes: Unremarkable. No enlarged lymph nodes. Urinary bladder: Unchanged cystectomy and ileal loop diversion. Reproductive: Unchanged prostatectomy. Bones/joints: Unchanged mild scoliosis and spondylosis. Otherwise, unremarkable. Soft tissues: Unchanged presumed subcutaneous scarring anterior left pelvic wall. Otherwise, unremarkable visualized body wall. Otherwise, unremarkable soft tissues. CT/CT chest abdpel w/*[id number] IMPRESSION: 1. Unchanged 1.4 cm subcutaneous nodule anterior left chest wall. Unchanged similar subcutaneous nodule posterior left chest wall. 2. A few 3 mm and smaller solid noncalcified nodules in both lungs are unchanged. The largest is in the superior segment left lower lobe. For patients at low risk (minimal or absent history of smoking and of other known risk factors), no routine follow-up is indicated. For patients at high risk (history of smoking or of other known risk factors), consider optional IMPRESSION: 1. Small amount of free fluid in the pelvis. 2. No other acute abdominal or pelvic findings. 3. Additional details as above. Unchanged.
== END 2025-04-20 11:46 | disposition home or self-care (01) ==
LOC: RAD 11:47
PROVIDERS: PCP Nurse Practitioner Family; Visit Provider Nurse Practitioner Family
DX: Z85.46 Personal history of malignant neoplasm of prostate (principal); R91.8 Other nonspecific abnormal finding of lung field; J98.4 Other disorders of lung; Z90.49 Acquired absence of other specified parts of digestive tract; Q89.1 Congenital malformations of adrenal gland; N28.1 Cyst of kidney, acquired; Z90.79 Acquired absence of other genital organ(s); M41.9 Scoliosis, unspecified
CPT/HCPCS: 71260; 74177